=== PATIENT | male | born 1980 | race Caucasian/White ===

== ENCOUNTER → 2016-09-04 | Outpatient (CLI) | payer BC ==
[~2016-09-04] MED LIST: DIPH25TA24 PO; LISI-725 PO; OMEP20CA9 PO
[2016-09-04 10:17] LABS: BLOOD UREA NITROGEN 17 mg/dl (7-18); BUN/CREATININE RATIO 15.8 (10-20); CARBON DIOXIDE 25 mmol/L (21-32); CHLORIDE 108 mmol/L (98-107); GLUCOSE 112 mg/dl (70-99); HDL CHOLESTEROL 41 mg/dl; MAGNESIUM 2.3 mg/dl (1.8-2.4); POTASSIUM 4.2 mmol/L (3.5-5.1); SODIUM 143 mmol/L (136-145)
[2016-09-04 10:26] LABS: ALB/GLOB RATIO 1.1 (0.9-2); ALKALINE PHOSPHATASE 75 U/L (45-117); ALT/SGPT 42 U/L (12-78); AST/SGOT 23 U/L (15-37); CHOLESTEROL 217 mg/dl (0-200); CHOLESTEROL/HDL RATIO 5.3; LDL CHOLESTEROL CALCULATED 133 mg/dl; TRIGLYCERIDES 215 mg/dl (0-150); VERY LOW DENSITY LIPOPROT CALC 43 mg/dl
== END | disposition home or self-care (01) ==
LOC: C.LAB1850 09:04
PROVIDERS: ATTEND Nurse Practitioner Family
DX: E78.5 Hyperlipidemia, unspecified (principal); R03.0 Elevated blood-pressure reading, without diagnosis of hypertension

== ENCOUNTER → 2017-03-05 | Outpatient (CLI) | payer BC ==
[~2017-03-05] VITALS: Ht 185.4 cm; Wt 140.8 kg
[2017-03-05 08:56] VITALS: BP 159/121; PULSE 86; Ht 185.4 cm; Wt 140.8 kg
[2017-03-05 08:57] VITALS: BP 157/122; PULSE 157
== END | disposition home or self-care (01) ==
LOC: C.NEUR 08:20
PROVIDERS: ATTEND Internal Medicine Pulmonary Disease
DX: G47.33 Obstructive sleep apnea (adult) (pediatric) (principal)

== ENCOUNTER → 2017-06-29 | Outpatient (CLI) | payer BC ==
--- NOTE | 2017-06-30 05:41 | PAP/PSG TECHNICIAN REPORT ---
[facility] [employer] Polysomnogram Report Study name: None Report date: 06/30/2017 Study date: 06/29/2017 Referring Physician: Dr. Dorian Wilson DO Name: VIJAY CR Interpreting Physician: Dorian Wilson D.O. 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 Sex: Male Age: 36 Study Type: PSG Weight: 310 lbs 19 in Height: 36 years, Height 6' 1" Neck Circum: BMI: 40.9 Medications: IPRATROPIUM BORMIDE 0.06% NASAL SOLN, MONTELUKAST 10 MG, OMEPRAZOLE 40 MG Patient History 36 yr-old male here for a baseline/split study. He has a history of daytime sleepiness, frequent awakenings, some headaches, and snoring. His [place] scale is 8. The test was starting on room air. ETCO2 testing was not utilized during this study. Room 1 Parameters Monitored NPSG: E1-M2, E2-M1, Fp1-M2, Fp2-M1, F3-M2, F4-M2, F4-M1, C3-M2, C4-M2, C4-M1, O1-M2, O2-M2, O2-M1, T3-M2, T4-M1, P3-M2, P4-M1, CHIN1, CHIN2, HR, EKG, Legs, PFLOW, SNOR, FLOW, CFLOW, Tidal Volume, THOR, ABDO, SpO2, PLTH, CPRESS, ETCO2 Wave, ETCO2, pH Sleep Architecture Sleep Stages Time at Lights Off 9:53:51 PM STAGES Time (min.) TST (%) Time at Lights On 5:31:51 AM Wake 20.5 -- Total Recording Time (TRT) 458.00 min. N1 69.0 16 Total Sleep Period (TSP) 452.0 min. N2 250.5 57 Total Sleep Time (TST) 437.5min. N3 0.0 0 Awake Time 20.5 min. REM 118.0 27 Wake after Sleep Onset 14.5 min. Sleep Efficiency (SE) 96 % Sleep Onset Latency (CARISSA) 6.0 min. Number of Stage 1 Shifts None Awakenings 14 Stage Changes 99 Number of REM periods 5 REM 118.0 27 REM Latency 81.0 min. NREM 319.5 73 Body Position Analysis Supine Right Left Side Prone Vertical Total Sleep Time (min.) 138.3 0.0 305.1 305.11 0.0 0.0 Total Sleep Time (%) 30% 0% 70% 70 0% N/A% Total Sleep Time REM (min.) 11.5 0.0 106.5 None 0.0 0.0 Total Sleep Time NREM (min.) 120.9 0.0 198.6 None 0.0 0.0 Intermittent Wake (min.) 6.0 0.0 14.5 None 0.0 0.0 Total Sleep Period (%) 31% None None None None None Arousals Myoclonus (PLM) * Events Count Index Events Count Index Spontaneous 13 2 Events Awake (PLMW) 24 70.2 Respiratory 27 4.1 Events Asleep w/ Arousal (PLMA) 12 1.6 PLM 11 2 Events Asleep w/o Arousal (PLMS) 228 31.3 Snoring 20 3 Total Asleep 240 32.9 Total 69 9 Total 264 35 Respiratory Analysis * CA OA MA CH H RERA Total Count 0 6 0 0 156 5 162 Index 0.0 0.8 0.0 0 21.4 1 22.9 Mean Duration 0.0 14.1 0.0 0.00 16.7 18.9 16.7 Longest Duration 0.0 18.2 0.0 0.00 0.0 27.8 50.3 Respiratory Event Summary Total Supine ~Supine Right Left Prone REM NREM Apneas Count 6 5 1 N/A 1 N/A 0 6 Index 0.8 2 0 N/A 0.2 N/A 0 1 Hypopneas (4% Desat) Count 156 143 13 N/A 13 N/A 10 146 Index 21.4 64.8 3 N/A 2.6 N/A 5.1 27.4 Apneas & All Hypopneas Count 162 148 14 N/A 14 N/A 10 152 Index 22.2 67 3 N/A 3 N/A 5.1 28.5 Respiratory Events (Coiled Coil Inspector+All Hyp+RERA) Count 162 152 15 N/A 15 N/A 10 152 Index 22.9 69 3 N/A 2.9 N/A 5.6 29.3 Respiratory Related Arousal Count 27 152 3 N/A 3 N/A 2 28 Index 4.1 12 1 N/A 1 N/A 1 5 Snoring Analysis Supine Right Left Prone REM NREM Total Snore duration 113.9 min Snores count 1,079 N/A 1,891 N/A 285 2,685 2,970 Snore mean duration 2.3 Sec Snores index 489 N/A 372 N/A 144.9 504.2 407.3 TST with snoring (%) 26.0% Desaturation Event Summary: Minimum %SpO2 Event Count Mean/Min/Max Duration(sec.) Desaturation Index % Time In Bed > 90 198 19.1 / 5.5 / 59.5 29.8 93.2 86 - 90 4 11.2 / 7.5 / 15.0 8.8 6.4 81 - 85 0 N/A 0.0 0.4 76 - 80 0 N/A 0.0 0.0 71 - 75 0 N/A 0.0 0.0 66 - 70 0 N/A 0.0 0.0 61 - 65 0 N/A 0.0 0.0 56 - 60 0 N/A 0.0 0.0 51 - 55 0 N/A 0.0 0.0 < 50 0 N/A 0.0 0.0 Total REM NREM Awake <50% 0.0 min. 0.0 min. 0.0 min. 0.0 min. 51 - 60% 0.0 min. 0.0 min. 0.0 min. 0.0 min. 61 - 70% 0.0 min. 0.0 min. 0.0 min. 0.0 min. 71 - 80% 0.0 min. 0.0 min. 0.0 min. 0.0 min. 81 - 90% 28.9 min. 0.8 min. 26.8 min. 1.3 min. 91 - 100% 398.4 min. 112.8 min. 271.9 min. 13.7 min. Average 93 94 93 93 Minimum SpO2 83 87 83 83 Desaturation Event Index 26.5 8.6 33.6 20.5 # Desat. Events below 89% 66 1 63 2 Time(%) with Saturation below 89% 2.4 0.1 2.2 0.2 Time(min.) with Saturation below 89% 10.1 0.2 9.3 0.6 Time (mins) REM (mins) NREM (mins) % of TST SpO2 Below 90% 139 3 N136 3.5 SpO2 Below 88% 18 0 0 1 Heart Rate Analysis Min (bpm) Max (bpm) Average (bpm) Awake 66 188 86 NREM 49 127 74 REM 54 127 74 Overall 49 127 74 Supplemental O2 Values Minimum O2 level: None Value Start Time End Time [employer] Teacher Comments Mr. Cr slept in the left and supine positions. No cardiac arrhythmias were noted. PLMs were noted. No bruxism noted. Snoring was noted and scored as a 4 on a scale of 1 through 5. (0=no snoring, 5=snoring loud enough to be heard through a closed door or down the alejandra way) He did not meet specific Split-Night criteria during the diagnostic portion of this study. He did not wake up to use the restroom during the night. Mr. Cr stated that he slept about the same as usual. The final report will be interpreted and signed by a sleep physician. The completed physician report will then be placed in the patient medical record. Therapy (cm H2O) 0 TIB (min.) 458.0 TST (min.) 437.5 Sleep Onset (min.) 6.0 REM Onset From Sleep (min.) 81.0 Sleep Efficiency % 96 Wakefulness (%) 4 Wakefulness (min.) 20.5 NREM 1 (%) 16 NREM 1 (min.) 69.0 NREM 2 (%) 57 NREM 2 (min.) 250.5 NREM 3 (%) 0 NREM 3 (min.) 0.0 REM (%) 27 REM (min.) 118.0 # Arousals 69 Arousal Index 9 # Snore 2,970 Snore Index 407.3 AHI 22.2 AHI Supine 67 AHI Non-Supine 3 NREM AHI 28.5 REM AHI 5.1 RDI 22.9 # Obstructive Apnea 6 # Central Apnea 0 # Mixed Apnea 0 # Hypopneas 156 RERAs 5 Total Respiratory Events 168 Time Below SpO2 89% (min.) 9.5 Mean NREM SpO2 (%) 93 Mean REM SpO2 (%) 94 Mean Sleep SpO2 (%) 93 Min NREM SpO2 (%) 83 Min REM SpO2 (%) 87 Position Supine (min.) 138.3 Position Non-supine (min.) 305.1 LM Index Sleep 32.9 LM Index NREM 35.7 LM Index REM 25.4 Mean Heart Rate (bpm) 74 Min Heart Rate (bpm) 49
--- NOTE | 2017-07-02 07:12 | Sleep Study ---
Sleep Study Report Date of Service: 06/29/2017 Sleep Study Report Clinical data: The patient is a 36-year-old male who has symptoms of snoring, disturbed nocturnal sleep, excessive daytime somnolence, and headaches. He has a BMI of 40.9. This was an in-lab diagnostic polysomnography Sleep architecture: The total sleep period was 452 minutes. The total sleep time was 437.5 minutes. The sleep efficiency was normal at 96 percent. The sleep latency was 6 minutes. Wake after sleep onset was 14.5 minutes. REM latency was normal at 81 minutes. Sleep consisted of stage N1 16 percent, stage N2 57 percent, stage N3 0 percent, stage REM 27 percent. Arousal data: The patient had a total of 69 arousals including 13 spontaneous arousals, 27 respiratory arousals, 11 PLM arousals, and 20 snoring arousals. The arousal index was 9. PLM data: The patient had a total of 240 periodic limb movements of sleep for a PLM index of 32.9. There were only 12 arousals associated with limb movements for a PLM arousal index of 1.6. EKG: The underlying cardiac rhythm was normal sinus. The lowest heart rate was 49 beats per minute. The average heart rate was 74 beats per minute. No cardiac arrhythmias were noted. Respiratory data: The patient had a total of 162 respiratory events including 6 obstructive apneas and 156 hypopneas. Hypopneas were scored according to the 4 percent desaturation rule. The longest apnea was 18.2 seconds. The mean duration of the hypopneas was 16.7 seconds. There were also 5 RERAs. The apnea -hypopnea index was elevated at 22.2 events per hour. This would represent moderate obstructive sleep apnea. Oximetry data: The average saturation for the night was 93 percent. The minimum saturation was 83 percent. There was a total of 10.1 minutes with saturations less than 89 percent. 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 No cardiac arrhythmias were noted. PLMS were noted. No bruxism noted. Snoring was noted and scored as a 4 on a scale of 1 through 5. He did not meet specific split night criteria during the diagnostic portion of this study. He did not wake up to use the restroom during the night. Impressions: 1. Moderate obstructive sleep apnea Comments: This patient had a normal sleep efficiency and mildly abnormal sleep architecture. There were a modest number of limb movements but with few arousals. He did not give a history of restless legs. He does have moderate sleep apnea. He also has significant symptoms. There was a much higher frequency of respiratory events in the supine position where his apnea-hypopnea index was 67. The majority of the respiratory events occurred during the 2nd half of the night. Recommendations: 1. It is advised that the patient be treated with nasal CPAP therapy. This could be done by an in-lab CPAP titration study. Alternatively he could be treated with an auto CPAP device. 2. The patient should avoid sleeping in the supine position. He clearly had increased respiratory events while supine. 3. Weight loss is advised in light of the elevation of body mass index of 40.9. Copies To 1: Dorian Wilson DO; Jordan Castillo III, DAVID
== END | disposition home or self-care (01) ==
LOC: C.NEUR 08:24
PROVIDERS: ATTEND Internal Medicine Pulmonary Disease
DX: G47.33 Obstructive sleep apnea (adult) (pediatric) (principal)

== ENCOUNTER → 2017-08-10 | Outpatient (CLI) | payer BC ==
[2017-08-10 09:49] LABS: BASO % 0.3 %; BASO ABS # 0.02 K/uL (0-0.2); EOS % 2.4 %; EOS ABS # 0.15 K/uL (0-0.5); HEMATOCRIT 43.3 % (42-52); HEMOGLOBIN 14.9 g/dL (14.0-18.0); IG# 0.02 K/uL (0.00-0.02); LYMPH % 23.2 %; LYMPH ABS # 1.45 K/uL (1.2-3.4); MEAN CELL VOLUME 86.3 fL (80-100); MEAN CORPUSCULAR HEMOGLOBIN 29.7 pg (25-34); MEAN CORPUSCULAR HGB CONC 34.4 g/dl (32-36); MEAN PLATELET VOLUME 10.5 fL (7.4-10.4); MONO % 6.7 %; MONO ABS # 0.42 K/uL (0.11-0.59); NEUT % 67.1 %; NEUT ABS # 4.19 K/uL (1.4-6.5); PLATELET COUNT 190 K/uL (130-400); RED CELL DISTRIBUTION WIDTH CV 12.7 % (11.5-14.5); RED CELL DISTRIBUTION WIDTH SD 40.3 fL (36.4-46.3); WHITE BLOOD COUNT 6.25 K/uL (4.8-10.8)
[2017-08-10 09:55] LABS: ALBUMIN 3.9 gm/dl (3.4-5.0); ALT/SGPT 36 U/L (12-78); AST/SGOT 17 U/L (15-37); BLOOD UREA NITROGEN 19 mg/dl (7-18); CALCIUM 8.8 mg/dl (8.5-10.1); CARBON DIOXIDE 27 mmol/L (21-32); GLUCOSE 112 mg/dl (70-99); SODIUM 139 mmol/L (136-145)
[2017-08-10 10:05] LABS: ALKALINE PHOSPHATASE 71 U/L (45-117); CHOLESTEROL 201 mg/dl (0-200); LDL CHOLESTEROL CALCULATED 125 mg/dl; TOTAL PROTEIN 7.6 gm/dl (6.4-8.2)
[2017-08-10 10:07] LABS: HEMOGLOBIN A1C 5.5 % (4.5-5.6)
== END | disposition home or self-care (01) ==
LOC: C.LAB1850 08:17
PROVIDERS: ATTEND Nurse Practitioner Family
DX: E78.5 Hyperlipidemia, unspecified (principal); R73.9 Hyperglycemia, unspecified; I10 Essential (primary) hypertension

== ENCOUNTER → 2017-08-10 | Outpatient (CLI) | payer BC ==
--- NOTE | 2017-08-10 09:15 | DIAGNOSTIC IMAGING REPORT ---
ABDOMINAL ULTRASOUND, RIGHT UPPER QUADRANT HISTORY: Right upper quadrant abdominal pain. COMPARISON: None. FINDINGS: Liver morphology is normal. No hepatic lesions are identified. There is no biliary ductal dilatation. Common bile duct measures 6 mm in caliber. No gallstones are identified. There is no gallbladder wall thickening. A small amount of sludge within the gallbladder is suspected. No pericholecystic fluid is noted. The pancreatic body is normal. The pancreatic head and tail are obscured. There is no right hydronephrosis. IMPRESSION: 1. No gallstones or biliary ductal dilatation. 2. Small amount of sludge within the gallbladder. No gallbladder wall thickening. No evidence of acute cholecystitis. Electronically signed by: Axel Johnson M.D. 08/10/2017 9:14 AM Dictated Date/Time: 08/10/2017 9:12 AM
== END | disposition home or self-care (01) ==
LOC: C.ULTR 08:34
PROVIDERS: ATTEND Nurse Practitioner Family
DX: R10.11 Right upper quadrant pain (principal)

== ENCOUNTER → 2017-08-25 | Outpatient (CLI) | payer BC ==
[~2017-08-25] MED LIST changes: +SINCALIDE IV ONE; +SODIUM CHLORIDE 0.9% IV ONE
--- NOTE | 2017-08-25 13:10 | DIAGNOSTIC IMAGING REPORT ---
HEPATOBILIARY EF IMAGING CLINICAL HISTORY: 36 years-old Male with R10.11 Abdominal pain, RUQ (right upper quadrant)[id number]. Acute right upper quadrant abdominal pain TECHNIQUE: Following the intravenous administration of 5.5 mCi of technetium-99m Choletec, sequential abdominal images were obtained. In order to evaluate the contractile response of the gallbladder, 2.7 mcg of Kinevac was administered by slow intravenous infusion over 30 min starting approximately 60 min after the administration of the radiopharmaceutical. Sequential imaging was continued for 45 minutes after the start of the Kinevac infusion. COMPARISON: Right upper quadrant ultrasound 08/10/2017 FINDINGS: There is prompt, uniform accumulation of the tracer by the liver. There is normal filling of the intrahepatic ducts, common bile duct and gallbladder and normal excretion of the tracer into the duodenum. There is decreased contraction of the gallbladder. The calculated gallbladder ejection fraction is 19% (normal >40%). There is no significant enterogastric reflux. IMPRESSION: 1. Decreased contractile response of the gallbladder to Kinevac infusion with ejection fraction of 19%. 2. Otherwise normal biliary imaging study. 3. No significant enterogastric reflux is identified. The above report was generated using voice recognition software. It may contain grammatical, syntax or spelling errors. Electronically signed by: Morgan Kirkpatrick M.D. 08/25/2017 1:09 PM Dictated Date/Time: 08/25/2017 1:06 PM
== END | disposition home or self-care (01) ==
LOC: C.NUCL 09:26
PROVIDERS: ATTEND Nurse Practitioner Family
DX: R10.11 Right upper quadrant pain (principal)

== ENCOUNTER → 2017-09-10 | Day surgery (SDC) | payer BC ==
[2017-09-07 09:48] VITALS: BMI 39.0
[~2017-09-10] VITALS: Ht 185.4 cm; Wt 136.4 kg
[~2017-09-10] MED LIST changes: +ACETAMINOPHEN 1000 MG/100 ML IV IV ONE; +ATROPINE SULFATE 0.1 MG/ML 5ML SYR IV PRN; +BUPIVACAINE 0.5 % 5 MG/1 ML MPF 30ML VIAL ONE; +BUPIVACAINE/EPINEPHRINE 0.5% MPF 1:200,000 30 ML VIAL ONE; +CEFAZOLIN 3000MG IV PUSH 22.5 ML IV SCH; +CISATRACURIUM BESYLATE IV SOLN 2 MG/ML 10 ML VIAL ONE; +DEXAMETHASONE SOD INJ 4 MG/ML VIAL ONE; -DIPH25TA24 PO; +EpHEDrine SULFATE INJ 50 MG/ML AMP IV PRN; +FENTANYL CITRATE INJ 50 MCG/1 ML 2 ML VIAL ONE; +FLUMAZENIL 0.1 MG/1 ML 10 ML VIAL IV PRN; +HEPARIN SOD 5000 UNIT/0.5 ML CARP SQ ONE; +HYDR-5688 PO; +HYDROCODONE/ACETAMIN 5/325MG TAB ONE; +HYDROCODONE/ACETAMIN 5/325MG TAB PO PRN; +HYDROmorphone INJ 1 MG/ML SYR IV PRN; +HYDROmorphone INJ 2 MG/ML SYR/VIAL ONE; +HydrALAZINE HCL 20 MG/ML VIAL ONE; +IPRATROPIUM BROMIDE INTNAS; +LABETALOL HCL IV 5 MG/ML 20ML IV ONE; +LABETALOL HCL IV 5 MG/ML 20ML IV PRN; +LACTATED RINGER'S 1000ML 1,000 ML IV SCH; +LIDOCAINE HCL 2% 2 ML VIAL (20MG/ML) ONE; -LISI-725 PO; +LOSARTAN HCTZ PO; +MIDAZOLAM HCL 1 MG/ML 2ML VIAL ONE; +MoRPHine SULFATE 2 MG/ML CARP IV PRN; +NALOXONE HCL 0.4 MG/1 ML VIAL/CARP IV PRN; +NURSING VERBAL MED ORDER ONE; +OMEG10007 PO; +ONDANSETRON INJ 2 MG/ML 2 ML VIAL IV PRN; +ONDANSETRON INJ 2 MG/ML 2 ML VIAL ONE; +PROMETHAZINE HCL INJ 12.5 MG in SODIUM CHLORIDE 0.9% 50ML 50 ML IV PRN; +PROPOFOL IV EMULSION 10 MG/ML 20 ML VIAL IV ONE; -SINCALIDE IV ONE; -SODIUM CHLORIDE 0.9% IV ONE; +SUCCINYLCHOLINE CHLORIDE 20 MG/ML 10 ML VIAL IV ONE
[2017-09-10 07:20] VITALS: BP 168/102; PULSE 90; TEMP 37.1; O2SAT 96; Ht 185.4 cm; Wt 136.4 kg
--- NOTE | 2017-09-10 07:51 | History & Physical Bridge Note ---
H&P Re-Evaluation Bridge Note: I have examined the patient, reviewed the History & Physical and in the interval since the performance of the History & Physical I have noted the following changes of clinical significance: No changes noted
--- NOTE | 2017-09-10 09:16 | [facility] Post Operative Brief Note ---
Immediate Operative Summary Operative Date Sep 10, 2017. Pre-Operative Diagnosis Chronic Cholecystitis Post-Operative Diagnosis Chronic Cholecystitis Procedure(s) Performed Laparoscopic Cholecystectomy Surgeon Dr. Fofana Shelter Advocate Surgeon(s) HENRI Jhaveri Estimated Blood Loss 5ml Findings Consistent with Post-Op Diagnosis Specimens A) Gallbladder and contents Drains None Anesthesia Type General Complication(s) none
--- NOTE | 2017-09-10 09:30 | Discharge Instructions ---
Discharge Instructions Date of Service Sep 10, 2017. Visit Reason for Visit: Biliary Dyskinesia Discharge Discharge Diagnosis / Problem: laparoscopic cholecystectomy Discharge Goals Goal(s): Decrease discomfort Activity Recommendations Activity Limitations: as noted below Lifting Limitations: no more than 10 pounds Shower/Bathe: no limitations Driving or Machine Use: resume 3 days after discharge Anesthesia . Post Anesthesia Instructions: If you have had General Anesthesia or IV Sedation: * Do not drive today. * Resume driving when surgeon permits. * Do not make important decisions or sign legal documents today. * Call surgeon for: 1. Temperature elevations greater than 101 degrees F. 2. Uncontrollable pain. 3. Excessive bleeding. 4. Persistent nausea and vomiting. 5. Medication intolerance (nausea, vomiting or rash). * For nausea and vomiting use only clear liquids such as: tea, soda, bouillon until nausea subsides, then gradually increase diet as tolerated. * If you have any concerns or questions, call your surgeon's office. If physician is unavailable and it is an emergency, call 911 or go to the nearest emergency room. . Instructions / Follow-Up Instructions / Follow-Up Dr. Fofana in 2 weeks as planned, call [phone] if you have any questions Diet Recommendations Recommended Home Diet: no limitations Procedures Procedures Performed: Laparoscopic Cholecystectomy Pending Studies Studies pending at discharge: yes List of pending studies: pathology Medical Emergencies . Who to Call and When: Medical Emergencies: If at any time you feel your situation is an emergency, please call 911 immediately. . Non-Emergent Contact Non-Emergency issues call your: Surgeon Call Non-Emergent contact if: you have a fever, temperature is above 101.5, your pain is not controlled, you have any medication questions . . "Provider Documentation" section prepared by Ernesto Boogie. .
--- NOTE | 2017-09-10 09:40 | [facility] Operative Report ---
Operative Report Operative Date Sep 10, 2017. Pre-Operative Diagnosis Chronic Cholecystitis Post-Operative Diagnosis Chronic Cholecystitis Procedure(s) Performed Laparoscopic Cholecystectomy Surgeon Dr. Fofana Electrical Software Engineer Surgeon(s) HENRI Jhaveri Estimated Blood Loss 5ml Specimens A) Gallbladder and contents Drains None Anesthesia Type General Complication(s) none Description of Procedure After informed consent was obtained the patient was taken to the operating room and placed in the supine position. After successful intubation the abdomen was sterilely prepped and draped in usual fashion. A periumbilical incision was made with an 11 blade scalpel and carried down through the soft tissue using electrocautery. The anterior rectus fascia was opened using electrocautery and 2 #0 Vicryl stay sutures were placed. The peritoneum was elevated with hemostats and incised under direct vision using Metzenbaum scissors. A finger sweep was performed and a 12 mm Ramirez trocar was placed. The abdomen was insufflated to 18 mmHg. The laparoscope was inserted and the abdomen was examined in 360. No gross abnormalities were identified. A subxiphoid 5 mm port and 2 right upper quadrant 5 mm ports were placed under direct vision. The patient was placed in a reverse Trendelenburg position and slightly airplaned to the left. The gallbladder was grasped and elevated superiorly and laterally. A [place] dissector was used to take down adhesions around the neck of the gallbladder. The cystic duct was identified and skeletonized. It was clipped twice proximally and once distally and transected using a laparoscopic scissor. In similar fashion the cystic artery was identified and skeletonized clipped and divided. The gallbladder was removed from the gallbladder fossa with electrocautery. It was placed into an Endo Catch bag. Thorough irrigation was performed. I looked around the entire abdomen as best I could with special attention to the right lower quadrant. I saw no visible abnormalites. The right colon, cecum, peritoneal surfaces all looked normal. There were no hernias. At the end of the procedure there was adequate hemostasis and no evidence of any bile leaks. A final look around the abdomen showed no other abnormalities. The gallbladder and trochars were all removed and the abdomen was desufflated. The fascia of the camera port was closed using 0 Vicryl in a [id number] fashion. All the wounds were irrigated and closed using 4-0 Monocryl. Marcaine was injected around them for postoperative analgesia and skin glue used as a dressing. The patient was awaken extubated and transferred to recovery in stable condition. My physician clinical education assistant was present through the entire case. He helped prep the patient. He helped with gallbladder retraction helped expose fascia for wound closure and dressing placement. I attest to the content of the Intraoperative Record and any orders documented therein. Any exceptions are noted below.
[2017-09-10 10:18] VITALS: BP 143/76; PULSE 82; TEMP 36.4; O2SAT 93
--- NOTE | 2017-09-10 10:35 | Anesthesiology Progress Note ---
Anesthesia Post Op Note Date & Time Sep 10, 2017 at 10:35 Vital Signs Pain Intensity: 5 Vital Signs Past 12 Hours Date Time Temp Pulse Resp B/P (MAP) Pulse Ox O2 Delivery O2 Flow Rate FiO2 09/10/17 10:18 36.4 82 18 143/76 93 Room Air 09/10/17 10:13 89 22 94 09/10/17 10:13 89 22 09/10/17 10:12 148/95 09/10/17 10:10 37.0 83 16 148/95 (107) 94 Room Air 09/10/17 10:08 82 14 95 09/10/17 10:08 83 14 09/10/17 10:06 153/94 09/10/17 10:03 84 11 09/10/17 10:03 83 11 96 09/10/17 10:02 87 15 09/10/17 10:02 88 15 156/97 97 09/10/17 09:57 80 18 97 09/10/17 09:57 80 18 09/10/17 09:56 154/103 09/10/17 09:52 85 19 09/10/17 09:52 84 19 95 09/10/17 09:51 156/110 09/10/17 09:50 89 18 156/110 (126) 97 Oxymask 10 09/10/17 09:47 75 11 09/10/17 09:47 72 11 92 09/10/17 09:46 170/107 09/10/17 09:42 91 14 09/10/17 09:42 91 14 100 09/10/17 09:41 173/117 09/10/17 09:39 158/113 09/10/17 09:37 88 13 185/118 95 09/10/17 09:37 87 13 09/10/17 09:34 193/124 09/10/17 09:33 194/121 09/10/17 09:32 36.3 84 12 194/121 (143) 97 Oxymask 10 09/10/17 07:20 37.1 90 18 168/102 (124) 96 Room Air Notes Mental Status: alert / awake / arousable, participated in evaluation Pt Amnestic to Procedure: Yes Nausea / Vomiting: adequately controlled Pain: adequately controlled Airway Patency, RR, SpO2: stable & adequate BP & HR: stable & adequate Hydration State: stable & adequate Anesthetic Complications: no major complications apparent
[2017-09-10 10:48] VITALS: BP 141/69; PULSE 81; TEMP 36.5; O2SAT 93
== END | disposition home or self-care (01) ==
LOC: C.ACU 06:49
PROVIDERS: ATTEND Surgery
DX: K81.1 Chronic cholecystitis (principal); R10.11 Right upper quadrant pain; E78.5 Hyperlipidemia, unspecified; I10 Essential (primary) hypertension; R12 Heartburn; G47.33 Obstructive sleep apnea (adult) (pediatric); F17.220 Nicotine dependence, chewing tobacco, uncomplicated; Z86.79 Personal history of other diseases of the circulatory system; Z87.898 Personal history of other specified conditions; Z80.8 Family history of malignant neoplasm of other organs or systems; Z80.3 Family history of malignant neoplasm of breast; Z84.89 Family history of other specified conditions

== ENCOUNTER → 2018-02-02 | Outpatient (CLI) | payer BC ==
[~2018-02-02] MED LIST changes: -ACETAMINOPHEN 1000 MG/100 ML IV IV ONE; -ATROPINE SULFATE 0.1 MG/ML 5ML SYR IV PRN; -BUPIVACAINE 0.5 % 5 MG/1 ML MPF 30ML VIAL ONE; -BUPIVACAINE/EPINEPHRINE 0.5% MPF 1:200,000 30 ML VIAL ONE; -CEFAZOLIN 3000MG IV PUSH 22.5 ML IV SCH; -CISATRACURIUM BESYLATE IV SOLN 2 MG/ML 10 ML VIAL ONE; -DEXAMETHASONE SOD INJ 4 MG/ML VIAL ONE; -EpHEDrine SULFATE INJ 50 MG/ML AMP IV PRN; -FENTANYL CITRATE INJ 50 MCG/1 ML 2 ML VIAL ONE; -FLUMAZENIL 0.1 MG/1 ML 10 ML VIAL IV PRN; -HEPARIN SOD 5000 UNIT/0.5 ML CARP SQ ONE; -HYDROCODONE/ACETAMIN 5/325MG TAB ONE; -HYDROCODONE/ACETAMIN 5/325MG TAB PO PRN; -HYDROmorphone INJ 1 MG/ML SYR IV PRN; -HYDROmorphone INJ 2 MG/ML SYR/VIAL ONE; -HydrALAZINE HCL 20 MG/ML VIAL ONE; -LABETALOL HCL IV 5 MG/ML 20ML IV ONE; -LABETALOL HCL IV 5 MG/ML 20ML IV PRN; -LACTATED RINGER'S 1000ML 1,000 ML IV SCH; -LIDOCAINE HCL 2% 2 ML VIAL (20MG/ML) ONE; -MIDAZOLAM HCL 1 MG/ML 2ML VIAL ONE; -MoRPHine SULFATE 2 MG/ML CARP IV PRN; -NALOXONE HCL 0.4 MG/1 ML VIAL/CARP IV PRN; -NURSING VERBAL MED ORDER ONE; -ONDANSETRON INJ 2 MG/ML 2 ML VIAL IV PRN; -ONDANSETRON INJ 2 MG/ML 2 ML VIAL ONE; -PROMETHAZINE HCL INJ 12.5 MG in SODIUM CHLORIDE 0.9% 50ML 50 ML IV PRN; -PROPOFOL IV EMULSION 10 MG/ML 20 ML VIAL IV ONE; -SUCCINYLCHOLINE CHLORIDE 20 MG/ML 10 ML VIAL IV ONE
[2018-02-02 09:43] LABS: HEMOGLOBIN A1C 5.6 % (4.5-5.6)
[2018-02-02 09:51] LABS: ALBUMIN 4.1 gm/dl (3.4-5.0); ALKALINE PHOSPHATASE 65 U/L (45-117); ALT/SGPT 35 U/L (12-78); AST/SGOT 17 U/L (15-37); BLOOD UREA NITROGEN 15 mg/dl (7-18); CALCIUM 9.5 mg/dl (8.5-10.1); CARBON DIOXIDE 27 mmol/L (21-32); CHOLESTEROL 170 mg/dl (0-200); CREATININE 1.01 mg/dl (0.60-1.40); GLUCOSE 104 mg/dl (70-99); LDL CHOLESTEROL CALCULATED 109 mg/dl; POTASSIUM 4.2 mmol/L (3.5-5.1); SODIUM 140 mmol/L (136-145); TOTAL PROTEIN 7.8 gm/dl (6.4-8.2)
== END | disposition home or self-care (01) ==
LOC: C.LAB 06:55
PROVIDERS: ATTEND Nurse Practitioner Family
DX: M25.50 Pain in unspecified joint (principal); E78.5 Hyperlipidemia, unspecified; R73.9 Hyperglycemia, unspecified; I10 Essential (primary) hypertension

== ENCOUNTER 2022-05-09 16:20 | Inpatient (IN) ==
[2022-05-09] MEDS ORDERED: HYDROmorphone INJ 1 MG/ML SYRINGE ONE (16:37)
[2022-05-09] MEDS ORDERED: ONDANSETRON INJ 2 MG/ML 2 ML VIAL IV STA (16:38)
[2022-05-09] MEDS ORDERED: HYDROmorphone INJ 1 MG/ML SYRINGE IV STA (16:38)
[2022-05-09] MEDS ORDERED: PIPERACILLIN/TAZOBACTAM 4.5 GM/120 ML BAG IV ONE (16:45)
[2022-05-09] MEDS: SODIUM CHLORIDE 0.9% 1000ML 1,000 ML IV SCH (16:47)
--- NOTE | 2022-05-09 16:50 | Emergency Department Note ---
History of Present Illness General Chief complaint: Laceration/Cut (Non-Suture) Stated complaint: CUT ON L FOOT, BLEEDING, WC Time Seen by Provider: 05/09/22 16:31 History of Present Illness Provider complaint: Left foot injury Onset (ago): hour(s) 1 Location: lower extremity and left Radiation: non-radiation Severity: moderate Pain Consistency: + constant Maximum Pain Intensity: 5 Current Pain Intensity: 5 Quality: + sharp Relieved By: + none Exacerbated By: + none Associated symptoms: no chest pain, no cough, no fever/chills, no headaches, no nausea/vomiting or no shortness of breath 41-year-old male presents emergency department for left foot injury. Patient states a circular cutter blade that he was using for cutting trees fell on his left foot and went through his steel toed boot. Patient reports no other i njuries. Tetanus is up-to-date. No blood thinners. Home Medications Medication Instructions Recorded Confirmed Type flaxseed oil 1,000 mg capsule 1,000 mg PO BID 05/29/20 05/09/22 History vitamin B complex 1 tab PO QAM 05/29/20 05/09/22 History cholecalciferol (vitamin D3) 50 4,000 unit PO QAM 12/14/20 05/09/22 History mcg (2,000 unit) tablet (Vitamin D3) colchicine 0.6 mg tablet 0.6 mg PO BID #180 tabs 11/07/21 05/09/22 Rx omeprazole 40 mg capsule,delayed 40 mg PO DAILY #90 caps 11/25/21 05/09/22 Rx release ipratropium bromide 42 mcg (0.06 2 spray intranasal QPM PRN allergy 02/18/22 05/09/22 Rx %) nasal spray symptoms #15 mL amlodipine 10 mg tablet 10 mg PO DAILY #90 tabs 03/03/22 05/09/22 Rx losartan 100 mg tablet 100 mg PO DAILY #90 tabs 03/03/22 05/09/22 Rx meloxicam 7.5 mg tablet 7.5 mg PO DAILY PRN pain #90 tabs 04/30/22 05/09/22 Rx simvastatin 10 mg tablet 10 mg PO QPM #90 tabs 04/30/22 05/09/22 Rx trazodone 50 mg tablet 50 mg PO HS 05/09/22 05/09/22 History Allergies Allergy/AdvReac Type Severity Reaction Status Date / Time No Known Allergies Allergy Unknown Unverified 05/09/22 17:20 Past Med/Surg History Medical History Allergic rhinitis Cervical radicular pain CTS (carpal tunnel syndrome) Dyslipidemia Gout Hyperglycemia Hypertension Left shoulder pain Obstructive sleep apnea of adult Right ear pain Uvulitis Vitamin D deficiency Surgical History History of dental surgery History of laparoscopic cholecystectomy (2018) Family History Grandmother (Maternal) Breast cancer Brother Thyroid cancer Other Allergic rhinitis Denies family history of Ovarian cancer Prostate cancer Myocardial infarction Colorectal cancer Social History Smoking Status: Never smoker Tobacco Type: Smokeless Tobacco (Dip or Chew) Age Started Using Tobacco: 11; packs per day: 1; Cigarettes Per Day: 1 CAN DAILY; Second Hand Exposure: No; Hx Alcohol Use: Yes Alcohol type: beer Alcohol Intake Frequency Comment: 3/day Hx Substance Use: No Preferred Language: Estonian Communication Ability: Effective Visual Impairment: No Limitations Hearing Ability: Normal Repossession Agent Required: No Beliefs That Will Affect Care: None marital status: Current Living Situation: Spouse current occupational status: employed current occupation: laid off currently How many Children do You have: 1 Feels Safe at Home: Yes Childhood Exposure to Second-Hand Smoke: Yes caffeine: Yes during the past year weight has: remained stable Dental Care, Regularly: No Physical Activity Frequency: 1-2 Times per Week Seatbelt Use: always Sunscreen Use: No Do you think of yourself as: straight/heterosexual Review of Systems A total of 10 systems reviewed and were otherwise negative Physical Exam Vital Signs Vital Signs - 24 hr 05/09/22 16:22 05/09/22 16:45 Temperature 36.5 C Temperature Source Temporal Artery Scan Pulse Rate 114 H Respiratory Rate 18 Respiratory Effort / Characteristics Non-Labored Respiratory Depth Normal Blood Pressure 172/115 H Blood Pressure Mean 134 Pulse Oximetry 98 Oxygen Delivery Method Room Air Room Air Sepsis Recent Fever Within 48 Hours No Sepsis New/Unexplained Change in Mental Status No Sepsis Action Taken by Nursing No Action Required Physical Exam GENERAL: He is oriented to person, place, and time. He appears well-developed and well-nourished. He does not appear distressed. HENT: Exam performed. - Head: Normocephalic and atraumatic. - Right Ear: External ear normal. No mastoid tenderness. - Left Ear: External ear normal. No mastoid tenderness. - Mouth/Throat: The oropharynx is clear and moist. No trismus in the jaw. No dental abscesses or uvula swelling. No oropharyngeal exudate or tonsillar abscesses. EYES: Conjunctivae and EOM are normal. Pupils are equal, round, and reactive to light. Right eye exhibits no discharge. Left eye exhibits no discharge. No scleral icterus. NECK: Normal range of motion. Neck supple. No JVD present. No spinous process tenderness present. No carotid bruit present. No rigidity. No tracheal deviation and normal range of motion present. No Brudzinski's sign and no Kernig's sign noted. CV: Normal rate, regular rhythm, normal heart sounds and intact distal pulses. There is no peripheral edema. Palpable radial pulses bue. PULM/CHEST: Effort normal and breath sounds normal. No respiratory distress. No stridor. He has no wheezes. He has no rales. - Chest Wall: He exhibits no tenderness. ABD: The abdomen is soft. Bowel sounds are normal. He has no distension. No mass is present. There is no tenderness. There is no rebound, no guarding, no Thomas's sign and no tenderness at McBurney's point. Rovsig negative. MUSC/SKEL: Left lower extremity: Laceration through the proximal phalanges 1 through 4 of the left foot. Bleeding is controlled. Palpable DP and PT pulse. Right lower extremity: Within normal limits. LYMPH: No cervical adenopathy. NEURO: He is alert and oriented to person, place, and time. He has normal strength. No cranial nerve deficit or sensory deficit. Coordination and gait n ormal. GCS eye subscore is 4. GCS verbal subscore is 5. GCS motor subscore is 6. Cerebellar tests wnl. PSYCH: He has a normal mood and affect. Behavior is normal. Judgment and thought content normal. Course Course 1631: The patient was evaluated in room A1. A complete history and physical exam was performed Cardiac monitoring: An order was placed for continuous cardiac monitoring. The monitor shows a rate of 110 with sinus rhythm 1707: X-ray reviewed by me shows displaced distal phalanx fracture of first toe, displaced middle phalanx fracture of second toe, and fracture of middle phalanx of third toe. Discussed the case with Dr. Street Podiatry who states that he will be down to evaluate the patient. Patient's tetanus is up-to-date. Patient be given Zosyn and vancomycin for antibiotic coverage. 1717: Dr. Street came and evaluated the patient at bedside. He states he will take the patient to the OR for washout and surgery. He requested the patient be admitted to the medical team [facility] team will be made aware. Administered Medications Vancomycin HCl 2,750 mg/ (Sodium Chloride) 555 mls @ 180 mls/hr IV NOW ONE Stop: 05/09/22 20:04 Last Admin: 05/09/22 17:15 Dose: 180 mls/hr Documented By: NEERAJ Sodium Chloride (Nss 1000ml) 1,000 mls @ 125 mls/hr IV .Q8H PEGGY Stop: 06/08/22 16:44 Last Admin: 05/09/22 16:47 Dose: 125 mls/hr Documented By: NEERAJ Discontinued Medications Hydromorphone HCl (Hydromorphone Inj 1 Mg/Ml Syringe) Confirm Administered Dose 1 mg .ROUTE .STK-MED ONE Stop: 05/09/22 16:38 Last Admin: 05/09/22 16:39 Dose: 1 mg Documented By: NEERAJ Piperacillin Sod/Tazobactam Sod (Zosyn) 4.5 gm in 120 mls @ 240 mls/hr IV NOW ONE Stop: 05/09/22 17:14 Last Admin: 05/09/22 16:41 Dose: 240 mls/hr Documented By: NEERAJ Medical Decision Making Laboratory Data Result diagrams: 05/09/22 16:27 05/09/22 16:37 Lab Results 05/09/22 05/09/22 Range/Units 16:27 16:45 WBC 7.37 (4.8-10.8) K/ul RBC 4.85 (4.63-6.08) M/uL Hgb 14.4 (14.0-18.0) g/dl Hct 41.2 (40.1-51.0) % MCV 84.9 (80.0-100.0) fL MCH 29.7 (25.0-34.0) pg MCHC 35.0 (32.0-36.0) g/dL RDW Std Deviation 38.5 (36.4-46.3) fL RDW Coeff of Rudy 12.4 (11.5-14.5) % Plt Count 218 (130-400) K/uL MPV 10.3 (9.4-12.4) fL Immature Gran % (Auto) 0.4 % Neut % (Auto) 72.3 % Lymph % (Auto) 18.5 % [place] % (Auto) 6.5 % Eos % (Auto) 1.9 % Baso % (Auto) 0.4 % Neut # (Auto) 5.33 (1.4-6.5) K/uL Lymph # (Auto) 1.36 (1.2-3.4) K/uL [place] # (Auto) 0.48 (0.24-0.82) K/uL Eos # (Auto) 0.14 (0-0.50) K/uL Baso # (Auto) 0.03 (0-0.2) K/uL Immature Gran # (Auto) 0.03 H (0.00-0.02) K/uL SARS-CoV-2, RNA, NAAT NEGATIVE (NEGATIVE) Imaging Data Radiologist's Impression: Foot X-Ray 05/09/22 16:39 XR foot LT min 3V routine CLINICAL HISTORY: open fx over toes TECHNIQUE: 3 views of the left foot were obtained. Comparison: None available at the time of this dictation. FINDINGS: There is a fracture of the distal phalanx of the first digit middle phalanx of the second digit. Soft tissue lacerations are seen. Soft tissue swelling is seen. There are a few punctate radiodense foreign bodies. The joint spaces are well preserved. IMPRESSION: Fractures of the distal phalanx of the first digit and middle phalanx of the second digit. There is associated soft tissue laceration. A few punctate radiodense foci in the soft tissues may represent foreign bodies. ACT 112: Negative or not required by law. Electronically signed by: Stuart Sofia M.D. 05/09/2022 5:16 PM [facility] Narrative 1631: The patient was evaluated in room A1. A complete history and physical exam was performed Cardiac monitoring: An order was placed for continuous cardiac monitoring. The monitor shows a rate of 110 with sinus rhythm 1707: X-ray reviewed by me shows displaced distal phalanx fracture of first toe, displaced middle phalanx fracture of second toe, and fracture of middle phalanx of third toe. Discussed the case with Dr. Street Podiatry who states that he will be down to evaluate the patient. Patient's tetanus is up-to-date. Patient be given Zosyn and vancomycin for antibiotic coverage. 1717: Dr. Street came and evaluated the patient at bedside. He states he will take the patient to the OR for washout and surgery. He requested the patient be admitted to the medical team [facility] Hospital[facility] team will be made aware. Impression & Plan Fracture of toe Discharge Plan Visit Data Chief Complaint: Laceration/Cut (Non-Suture) Stated Complaint: CUT ON L FOOT, BLEEDING, WC ED Provider: Sourav Fields Discharge Problem: Fracture of toe Patient Disposition: Admitted As Inpatient Forms Stand Alone Forms: My [facility] Prescriptions Prescriptions: No Action omeprazole 40 mg capsule,delayed release(DR/EC) 40 mg PO DAILY Qty: 90 2RF amlodipine 10 mg tablet 10 mg PO DAILY Qty: 90 2RF losartan 100 mg tablet 100 mg PO DAILY Qty: 90 1RF meloxicam 7.5 mg tablet 7.5 mg PO DAILY PRN (Reason: pain) Qty: 90 1RF simvastatin 10 mg tablet 10 mg PO QPM Qty: 90 1RF vitamin B complex Tablet 1 tab PO QAM flaxseed oil 1,000 mg capsule 1,000 mg PO BID Rx Instructions: administer with a meal ipratropium bromide 42 mcg (0.06 %) spray,non-aerosol 2 spray INTNAS QPM PRN (Reason: allergy symptoms) Qty: 15 0RF colchicine 0.6 mg tablet 0.6 mg PO BID Qty: 180 1RF trazodone 50 mg tablet 50 mg PO HS cholecalciferol (vitamin D3) [Vitamin D3] 50 mcg (2,000 unit) Tablet 4,000 unit PO QAM Referrals Referrals: Matt Covarrubias CRNP [Primary Care Provider] - : Fracture of toe Qualifiers: Encounter type: initial encounter Toe: unspecified toe Fracture type: open Fracture alignment: displaced Laterality: unspecified laterality Qualified Code(s): S92.919B - Unspecified fracture of unspecified toe(s), initial encou nter for open fracture
[2022-05-09] MEDS ORDERED: VANCOMYCIN HCL 2,750 MG in SODIUM CHLORIDE 0.9% 500 ML IV ONE (17:00)
[2022-05-09 17:15] LABS: Basophils # (auto) 0.03 K/uL (0-0.2); Basophils % (auto) 0.4 %; Eosinophils # (auto) 0.14 K/uL (0-0.50); Eosinophils % (auto) 1.9 %; Hematocrit (blood only) 41.2 % (40.1-51.0); Hemoglobin 14.4 g/dl (14.0-18.0); Immature Granulocytes # (auto) 0.03 K/uL (0.00-0.02); Immature Granulocytes % (auto) 0.4 %; Lymphocytes # (auto) 1.36 K/uL (1.2-3.4); Lymphocytes % (auto) 18.5 %; Mean Corpuscular Hemoglobin 29.7 pg (25.0-34.0); Mean Corpuscular Volume 84.9 fL (80.0-100.0); Mean Platelet Volume 10.3 fL (9.4-12.4); Monocytes # (auto) 0.48 K/uL (0.24-0.82); Monocytes % (auto) 6.5 %; Neutrophils # (auto) 5.33 K/uL (1.4-6.5); Neutrophils % (auto) 72.3 %; Platelet Count 218 K/uL (130-400); RDW Coefficient of Variation 12.4 % (11.5-14.5); RDW Standard Deviation 38.5 fL (36.4-46.3); Red Blood Count 4.85 M/uL (4.63-6.08); White Blood Count 7.37 K/ul (4.8-10.8)
--- NOTE | 2022-05-09 17:18 | XRay Report ---
XR foot LT min 3V routine CLINICAL HISTORY: open fx over toes TECHNIQUE: 3 views of the left foot were obtained. Comparison: None available at the time of this dictation. FINDINGS: There is a fracture of the distal phalanx of the first digit middle phalanx of the second digit. Soft tissue lacerations are seen. Soft tissue swelling is seen. There are a few punctate radiodense forei gn bodies. The joint spaces are well preserved. IMPRESSION: Fractures of the distal phalanx of the first digit and middle phalanx of the second digit. There is a ssociated soft tissue laceration. A few punctate radiodense foci in the soft tissues may represent fo reign bodies. ACT 112: Negative or not required by law. Electronically signed by: Stuart Sofia M.D. 05/09/2022 5:16 PM
[2022-05-09 17:24] LABS: Partial Thromboplastin Ratio 0.9; Partial Thromboplastin Time 24.4 Seconds (21.0-31.0); Prothrombin Time 10.3 Seconds (9.0-12.0)
[2022-05-09 17:28] LABS: BUN Creatinine Ratio 16.2 (10-20); Calcium 9.7 mg/dl (8.5-10.1); Creatinine Clr Calc Pharmacy 150.6 ml/min; Est GFR (African American) 107.7 ml/min; Est GFR (Non-African American) 92.9 ml/min; Potassium 3.7 mmol/L (3.5-5.1)
--- NOTE | 2022-05-09 17:33 | History & Physical Report ---
Date of Service May 09, 2022 Assessment & Plan (1) Open fracture of foot: Plan: - Circular blade dropped on foot earlier this afternoon. - Left foot XR: Fractures of the distal phalanx of the first digit and middle phalanx of the second digit. There is associated soft tissue laceration. A few punctate radiodense foci in the soft tissues may represent foreign bodies. - Last tetanus in December 2020. - Podiatry consulted by ED, Dr. Street plans to take patient to the OR this evening. - Pain control with IV Tylenol/Toradol, Dilaudid. - Given open fracture, keep on Zosyn and vancomycin. (2) Obstructive sleep apnea of adult: Plan: - CPAP at night. (3) Hypertension: Plan: - Continue amlodipine, losartan. (4) Dyslipidemia: Plan: - Continue simvastatin. (5) Allergic rhinitis: Plan: - Inhaler as needed. (6) Hyperglycemia: Plan: - Elevated sugars, normal A1c, diet controlled. No need for Accu-Cheks. Plan - Admit to [facility]. - SCDs. - Full code. History of Present Illness Chief Complaint: foot injury sustained after dropping a blade on foot this afternoon Primary Care Provider: DAVID Martinez Yovanny Schmid is a 41-year-old male with a past medical history significant for CORTNEY, hypertension, dyslipidemia, and gout is presenting today after a circular cutter blade was dropped on his foot. 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 He did go through his steel toe boat and he felt instant pain. He had sensation of the foot, numbness or tingling, pain well controlled at this point. Voices no other complaints. X-ray of the left foot shows fracture of the distal phalanx of the first digit middle phalanx and second digit associated with soft tissue laceration, as well as few punctate radiodense foci in soft tissues which may be foreign bodies. Tetanus up-to-date, confirmed he received this in December 2020. Labs of unrevealing, hemoglobin 14.4 on admission. COVID-negative. Allergies Allergy/AdvReac Type Severity Reaction Status Date / Time No Known Allergies Allergy Unknown Unverified 05/09/22 17:20 Home Medications Medication Instructions Recorded Confirmed Type flaxseed oil 1,000 mg capsule 1,000 mg PO BID 05/29/20 05/09/22 History vitamin B complex 1 tab PO QAM 05/29/20 05/09/22 History cholecalciferol (vitamin D3) 50 4,000 unit PO QAM 12/14/20 05/09/22 History mcg (2,000 unit) tablet (Vitamin D3) colchicine 0.6 mg tablet 0.6 mg PO BID #180 tabs 11/07/21 05/09/22 Rx omeprazole 40 mg capsule,delayed 40 mg PO DAILY #90 caps 11/25/21 05/09/22 Rx release ipratropium bromide 42 mcg (0.06 2 spray intranasal QPM PRN allergy 02/18/22 05/09/22 Rx %) nasal spray symptoms #15 mL amlodipine 10 mg tablet 10 mg PO DAILY #90 tabs 03/03/22 05/09/22 Rx losartan 100 mg tablet 100 mg PO DAILY #90 tabs 03/03/22 05/09/22 Rx meloxicam 7.5 mg tablet 7.5 mg PO DAILY PRN pain #90 tabs 04/30/22 05/09/22 Rx simvastatin 10 mg tablet 10 mg PO QPM #90 tabs 04/30/22 05/09/22 Rx trazodone 50 mg tablet 50 mg PO HS 05/09/22 05/09/22 History Past Med/Surg History Medical History Allergic rhinitis Cervical radicular pain CTS (carpal tunnel syndrome) Dyslipidemia Gout Hyperglycemia Hypertension Left shoulder pain Obstructive sleep apnea of adult Right ear pain Uvulitis Vitamin D deficiency Surgical History History of dental surgery History of laparoscopic cholecystectomy (2018) Family History Grandmother (Maternal) Breast cancer Brother Thyroid cancer Other Allergic rhinitis Denies family history of Ovarian cancer Prostate cancer Myocardial infarction Colorectal cancer Social History Smoking Status: Never smoker Tobacco Type: Smokeless Tobacco (Dip or Chew) Age Started Using Tobacco: 11; packs per day: 1; Cigarettes Per Day: 1 CAN DAILY; Second Hand Exposure: No; Hx Alcohol Use: Yes Alcohol type: beer Alcohol Intake Frequency Comment: 3/day Hx Substance Use: No Preferred Language: Kinyarwanda Communication Ability: Effective Visual Impairment: No Limitations Hearing Ability: Normal 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 Beliefs That Will Affect Care: None marital status: Current Living Situation: Spouse current occupational status: employed current occupation: laid off currently How many Children do You have: 1 Feels Safe at Home: Yes Childhood Exposure to Second-Hand Smoke: Yes caffeine: Yes during the past year weight has: remained stable Dental Care, Regularly: No Physical Activity Frequency: 1-2 Times per Week Seatbelt Use: always Sunscreen Use: No Do you think of yourself as: straight/heterosexual Review of Systems Review of Systems: Constitutional: No fever/chills, weakness, fatigue, myalgias, anorexia, night sweats Eyes: No diplopia, no worsening or blurred vision ENT: normal hearing, no trouble swallowing Respiratory: No cough, sputum, dyspnea at rest or on exertion Cardiovascular: No chest pain, tightness or palpitations Abdomen: No pain, nausea, vomiting, diarrhea or constipation : Denies dysuria, hematuria, increased urgency/frequency, urinary retention Musculoskeletal: Left foot pain; otherwise no joint pain, calf pain, swelling Neurologic: No weakness, numbness/tingling, or balance problems Psychiatric: No anxiety or depression Skin: No rash or itch Physical Exam Physical Exam: General: awake, alert, no apparent distress Head: Normocephalic, atraumatic ENT: PERRL, EOMI, no pharyngeal exudate, mucous membranes moist Chest: Clear to auscultation, on room air, no adventitious breath sounds Cardiac: Regular rate and rhythm, no murmur, no JVD, normal peripheral pulses, good capillary refill Abdominal: NABS x 4 quadrants, soft, nontender to palpation, no rebound, guarding or tenderness Extremities: There is a deep deep gash through digits 1 through 3 on the left foot, minimal swelling, pulses are intact, skin is warm, not tender to touch; otherwise normal inspection, no peripheral edema or erythema, calfs nontender to palpation Psych: Normal mood and affect Neuro: AAO x 3, strength intact bilaterally and rated 5/5, no motor deficits, speech is clear, no peripheral sensory deficits Skin: no rash or erythema Results & Data Results & Data ([facility]) Vital Signs (Past 12 Hours) Vital Signs Temp Pulse Resp BP Pulse Ox O2 Del Method 05/09/22 16:45 Room Air 05/09/22 16:22 36.5 C 114 H 18 172/115 H 98 Room Air Laboratory Results Abnormal lab results 05/09/22 05/09/22 Range/Units 16:27 16:37 Immature Gran # (Auto) 0.03 H (0.00-0.02) K/uL Glucose 128 H (70-99(Fasting)) mg/dl Diagnostic Findings Foot X-Ray 05/09/22 16:39 XR foot LT min 3V routine CLINICAL HISTORY: open fx over toes TECHNIQUE: 3 views of the left foot were obtained. Comparison: None available at the time of this dictation. FINDINGS: There is a fracture of the distal phalanx of the first digit middle phalanx of the second digit. Soft tissue lacerations are seen. Soft tissue swelling is seen. There are a few punctate radiodense foreign bodies. The joint spaces are well preserved. IMPRESSION: Fractures of the distal phalanx of the first digit and middle phalanx of the second digit. There is associated soft tissue laceration. A few punctate radiodense foci in the soft tissues may represent foreign bodies. ACT 112: Negative or not required by law. Electronically signed by: Stuart Sofia M.D. 05/09/2022 5:16 PM Code Status & VTE Plan Code Status Full code Supervising Physician Co-Signing Physician Notes Patient seen and examined, chart reviewed, case discussed with Abena Lozoya PA-C and I agree with the assessment and plan as above except as otherwise noted Labs and images reviewed 41-year-old male with a past medical history of hypertension, hyperglycemia, dyslipidemia who presented with open fractures of the distal phalanx of the first digit and middle phalanx of the second digit of the left foot with soft tissue lacerations and potential foreign bodies after he dropped a sawblade on his foot. Podiatry has been consulted, to proceed to the OR for washout with Dr. Street today. Tetanus is up-to-date. 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 On admission no leukocytosis, hemoglobin is normal, coagulation panel is normal, there are no electrolyte derangements, and creatinine is 0.99 on admission with a normal baseline. COVID is negative. Traumatic fracture of left first and second digits: Podiatry consulted. Washout pending. Requested for admit to medicine given medical comorbidities. Agree with management above. Agree with chronic issue management above. PG Care Time/CCT Total # of Minutes Spent Total Time Spent with Patient: Total time spent is greater than 50% in coordination of care (as documented) at patient's floor/unit and/or counseling patient: Coding Level of Care Code 31339 Initial Inpt Care Lvl 3 Diagnoses Open fracture of foot S92.909B Obstructive sleep apnea of adult G47.33 Hypertension I10 Hypertension type: essential hypertension Dyslipidemia E78.5 Allergic rhinitis J30.9 Hyperglycemia R73.9 (1) Hypertension Hypertension type: essential hypertension Qualified Code(s): I10 - Essential (primary) hypertension
--- NOTE | 2022-05-09 18:30 | Emergency Department Note ---
General (ED) Blank Date of Service May 09, 2022 ED Visit Note I personally performed a history and examined the patient in conjunction with Dr. Fields. Additional information regarding the history, physical, assessment, and plan were discussed with supervising attending physician and are noted in their ED visit note. Resident Activity Tracking Resident Involvement: Resident Care Provided Care Provided: Adult ED : Fracture of toe Qualifiers: Encounter type: initial encounter Toe: unspecified toe Fracture type: open Fracture alignment: displaced Laterality: unspecified laterality Qualified Code(s): S92.919B - Unspecified fracture of unspecified toe(s), initial encounter for open fracture
[2022-05-09] MEDS ORDERED: LIDOCAINE 1% LOCAL 20 ML VIAL ONE (19:09)
--- NOTE | 2022-05-09 19:21 | Orthopedic Consultation ---
Date of Consultation May 09, 2022 Assessment & Plan (1) Open fracture of foot: Patient seen, evaluated, and treated. Discussed imaging and physical exam with Patient and . Recommend wash out, possible reapproximation of soft tissue grossly. Patient and voice understanding and consent. I reviewed procedure in detail as well as postoperative recovery. I discussed expectations and patient's current weightbearing status. All questions answered. I have discussed procedure in detail as well as postoperative recovery. All potential risks, benefits, complications, alternatives, rehab, potential for incomplete relief of symptoms, need for further surgery, DVT, PE, , persistent pain, swelling, scarring, weakness, neurovascular, wound complications and potential for amputations were discussed with patient. Unwanted outcomes such as, but not limited to were reviewed including under correction, overcorrection, return of deformity, infection. All questions were answered. Patient has decided to proceed with procedure as indicated. (2) Fracture of toe: History of Present Illness Attending Physician: Rocky Street DPM, [place] History of Present Illness Patient is a pleasant, 41-year-old male with a past medical history of hypertension, hyperglycemia, dyslipidemia. Patient presents with who helps with history and care. Patient was seen in [facility] ED for open fractures of the distal phalanx of the first digit and middle phalanx of the second digit of the left foot with soft tissue lacerations and potential foreign bodies after he dropped a sawblade on his foot. Tetanus is up-to-date. 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 Allergies Allergy/AdvReac Type Severity Reaction Status Date / Time No Known Allergies Allergy Unknown Unverified 05/09/22 17:20 Home Medications Medication Instructions Recorded Confirmed Type flaxseed oil 1,000 mg capsule 1,000 mg PO BID 05/29/20 05/09/22 History vitamin B complex 1 tab PO QAM 05/29/20 05/09/22 History cholecalciferol (vitamin D3) 50 4,000 unit PO QAM 12/14/20 05/09/22 History mcg (2,000 unit) tablet (Vitamin D3) colchicine 0.6 mg tablet 0.6 mg PO BID #180 tabs 11/07/21 05/09/22 Rx omeprazole 40 mg capsule,delayed 40 mg PO DAILY #90 caps 11/25/21 05/09/22 Rx release ipratropium bromide 42 mcg (0.06 2 spray intranasal QPM PRN allergy 02/18/22 05/09/22 Rx %) nasal spray symptoms #15 mL amlodipine 10 mg tablet 10 mg PO DAILY #90 tabs 03/03/22 05/09/22 Rx losartan 100 mg tablet 100 mg PO DAILY #90 tabs 03/03/22 05/09/22 Rx meloxicam 7.5 mg tablet 7.5 mg PO DAILY PRN pain #90 tabs 04/30/22 05/09/22 Rx simvastatin 10 mg tablet 10 mg PO QPM #90 tabs 04/30/22 05/09/22 Rx trazodone 50 mg tablet 50 mg PO HS 05/09/22 05/09/22 History Patient History Medical History Allergic rhinitis Cervical radicular pain CTS (carpal tunnel syndrome) Dyslipidemia Gout Hyperglycemia Hypertension Left shoulder pain Obstructive sleep apnea of adult Right ear pain Uvulitis Vitamin D deficiency Surgical History History of dental surgery History of laparoscopic cholecystectomy (2018) Family History Grandmother (Maternal) Breast cancer Brother Thyroid cancer Other Allergic rhinitis Denies family history of Ovarian cancer Prostate cancer Myocardial infarction Colorectal cancer Social History Smoking Status: Never smoker Tobacco Type: Smokeless Tobacco (Dip or Chew) Age Started Using Tobacco: 11; packs per day: 1; Cigarettes Per Day: 1 CAN DAILY; Second Hand Exposure: No; Hx Alcohol Use: Yes Alcohol type: beer Alcohol Intake Frequency Comment: 3/day Hx Substance Use: No Preferred Language: Albanian Communication Ability: Effective Visual Impairment: No Limitations Hearing Ability: Normal 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 Required: No Beliefs That Will Affect Care: None marital status: Current Living Situation: Spouse current occupational status: employed current occupation: laid off currently How many Children do You have: 1 Feels Safe at Home: Yes Childhood Exposure to Second-Hand Smoke: Yes caffeine: Yes during the past year weight has: remained stable Dental Care, Regularly: No Physical Activity Frequency: 1-2 Times per Week Seatbelt Use: always Sunscreen Use: No Do you think of yourself as: straight/heterosexual Review of Systems Review of Systems: All systems reviewed & are unremarkable except as noted in HPI & below Physical Exam Eyes: PERRL, conjunctivae normal, anicteric sclerae ENMT: external ear and nose normal, oropharynx normal Respiratory: normal respiratory effort Cardiovascular: Pedal pulses are palpable. DEPLOYMENT MANAGER wnl. Skin: Open full thickness lacerations with exposed bone left foot digits 1, 2, 3. Neurologic: Gross epicritic sensation intact. Psychiatric: A+Ox3, euthymic affect Results & Data ([facility]) Vital Signs (Past 12 Hours) Vital Signs Temp Pulse Pulse Resp BP BP Pulse Ox 05/09/22 18:20 37.1 C 87 22 150/99 H 100 05/09/22 17:30 87 17 96 05/09/22 17:30 148/93 H 05/09/22 17:17 91 H 17 94 05/09/22 17:17 151/96 H 05/09/22 17:00 94 H 16 96 05/09/22 16:31 103 H 16 97 05/09/22 16:30 195/118 H 05/09/22 16:45 05/09/22 16:22 36.5 C 114 H 18 172/115 H 98 O2 Del Method 05/09/22 18:20 Room Air 05/09/22 17:30 05/09/22 17:30 05/09/22 17:17 05/09/22 17:17 05/09/22 17:00 05/09/22 16:31 05/09/22 16:30 05/09/22 16:45 Room Air 05/09/22 16:22 Room Air Diagnostic Findings XR foot LT min 3V routine CLINICAL HISTORY: open fx over toes TECHNIQUE: 3 views of the left foot were obtained. Comparison: None available at the time of this dictation. FINDINGS: There is a fracture of the distal phalanx of the first digit middle phalanx of the second digit. Soft tissue lacerations are seen. Soft tissue swelling is seen. There are a few punctate radiodense foreign bodies. The joint spaces are well preserved. IMPRESSION: Fractures of the distal phalanx of the first digit and middle phalanx of the second digit. There is associated soft tissue laceration. A few punctate radiodense foci in the soft tissues may represent foreign bodies. ACT 112: Negative or not required by law. Electronically signed by: Stuart Sofia M.D. 05/09/2022 5:16 PM (1) Fracture of toe Encounter type: initial encounter Fracture alignment: displaced Fracture type: open Laterality: unspecified laterality Toe: unspecified toe Qualified Code(s): S92.919B - Unspecified fracture of unspecified toe(s), initial encounter for open fracture
--- NOTE | 2022-05-09 19:24 | History & Physical Bridge Note ---
Date of Service May 09, 2022 History & Physical Bridge Note I have examined the patient, reviewed the History & Physical and in the interval since the performance of the History & Physical I have noted the following changes of clinical significance: no changes noted
--- NOTE | 2022-05-09 19:28 | Anesthesiology Consultation ---
Date of Service May 09, 2022 Assessment & Plan Chart Review Chart Review: Acceptable Risk for Surgery Consults Requested none History Surgery Operation Date: 05/09/22 11:40 Proposed Procedures p Washout of Left Foot - Rocky Street DPM, MS Height/Weight Height: 6 ft 1 in Weight: 156.8 kg Allergies Allergy/AdvReac Type Severity Reaction Status Date / Time No Known Allergies Allergy Unknown Unverified 05/09/22 17:20 Medications Home Medications Medication Instructions Recorded Confirmed Last Taken flaxseed oil 1,000 mg capsule 1,000 mg PO BID 05/29/20 05/09/22 12/14/20 vitamin B complex 1 tab PO QAM 05/29/20 05/09/22 12/14/20 cholecalciferol (vitamin D3) 50 4,000 unit PO QAM 12/14/20 05/09/22 12/14/20 mcg (2,000 unit) tablet (Vitamin D3) colchicine 0.6 mg tablet 0.6 mg PO BID #180 tabs 11/07/21 05/09/22 Unknown omeprazole 40 mg capsule,delayed 40 mg PO DAILY #90 caps 11/25/21 05/09/22 Unknown release ipratropium bromide 42 mcg (0.06 2 spray intranasal QPM PRN allergy 02/18/22 05/09/22 Unknown %) nasal spray symptoms #15 mL amlodipine 10 mg tablet 10 mg PO DAILY #90 tabs 03/03/22 05/09/22 Unknown losartan 100 mg tablet 100 mg PO DAILY #90 tabs 03/03/22 05/09/22 Unknown meloxicam 7.5 mg tablet 7.5 mg PO DAILY PRN pain #90 tabs 04/30/22 05/09/22 Unknown simvastatin 10 mg tablet 10 mg PO QPM #90 tabs 04/30/22 05/09/22 Unknown trazodone 50 mg tablet 50 mg PO HS 05/09/22 05/09/22 Unknown Active Medications Generic Name Dose Route Start Last Admin Trade Name Freq PRN Reason Stop Dose Admin Vancomycin HCl 2,750 mg/ 555 mls @ 180 mls/hr 05/09/22 17:00 05/09/22 17:15 Sodium Chloride IV 05/09/22 20:04 180 mls/hr NOW ONE Administration Sodium Chloride 1,000 mls @ 125 mls/hr 05/09/22 16:45 05/09/22 16:47 Nss 1000ml IV 06/08/22 16:44 125 mls/hr .Q8H PEGGY Administration NPO Date Last Intake of Fluids: 05/09/22 Time Last Intake of Fluids: 15:00 Date Last Intake of Solids: 05/09/22 Time Last Intake of Solids: 13:00 Past Medical History Medical History Allergic rhinitis Cervical radicular pain CTS (carpal tunnel syndrome) Dyslipidemia Gout Hyperglycemia Hypertension Left shoulder pain Obstructive sleep apnea of adult Right ear pain Uvulitis Vitamin D deficiency Past Family History Family History Grandmother (Maternal) Breast cancer Brother Thyroid cancer Other Allergic rhinitis Denies family history of Ovarian cancer Prostate cancer Myocardial infarction Colorectal cancer Past Surgical History Surgical History History of dental surgery History of laparoscopic cholecystectomy (2018) Social History Smoking Status: Never smoker Smoking cigarettes per day: 1 CAN DAILY Hx Alcohol Use: Yes Alcohol type: beer Hx Substance Use: No Physical Exam Vital Signs Last Vital Signs Temp 37.1 C 05/09/22 18:20 Pulse 87 05/09/22 18:20 Resp 22 05/09/22 18:20 BP 150/99 H 05/09/22 18:20 Pulse Ox 100 05/09/22 18:20 O2 Del Method 05/09/22 18:20 Testing Laboratory Results 05/09/22 16:27 05/09/22 16:37 PT 10.3 Seconds (9.0-12.0) 05/09/22 16:27 INR 1.0 (0.9-1.1) 05/09/22 16:27 APTT 24.4 Seconds (21.0-31.0) 05/09/22 16:27
[2022-05-09] MEDS ORDERED: ONDANSETRON INJ 2 MG/ML 2 ML VIAL IV PRN ×2 (19:30→23:19)
[2022-05-09] MEDS ORDERED: HYDROmorphone INJ 2 MG/ML SYR/VIAL IV PRN (19:30)
[2022-05-09] MEDS ORDERED: PROMETHAZINE HCL 12.5 MG in SODIUM CHLORIDE 0.9% 50 ML IV PRN (19:30)
[2022-05-09] MEDS ORDERED: ATROPINE SULFATE 0.1 MG/ML 10ML SYR IV PRN (19:30)
[2022-05-09] MEDS ORDERED: ePHEDrine sulfate 50 MG/ML AMP IV PRN (19:30)
[2022-05-09] MEDS ORDERED: MIDAZOLAM HCL 1 MG/ML 2ML VIAL ONE (19:33)
[2022-05-09] MEDS ORDERED: fentaNYL citrate 100 MCG/2 ML VIAL ONE ×3 (19:34→21:28)
[2022-05-09] MEDS ORDERED: BUPIVACAINE 0.5 % 5 MG/1 ML MPF 30ML VIAL INJ ONE (20:34)
[2022-05-09] MEDS ORDERED: PROPOFOL IV EMULSION 10 MG/ML 20 ML VIAL IV ONE (20:38)
[2022-05-09] MEDS: fentaNYL citrate 100 MCG/2 ML VIAL IV PRN ×2 (21:28→21:33)
--- NOTE | 2022-05-09 21:36 | Operative Report ---
Post Operative Report Pre & Post Diagnosis Operation Date: 05/09/22 11:40 Pre-Op Diagnosis: Open fracture of left foot Post-Op Diagnosis: Open fracture of left foot I identified the patient and participated in the time-out.: Yes Procedure Operation Date: 05/09/22 11:40 Actual Procedures Incision and Drainage Debridement of Left Foot; Laceration of Non Viable Bone and Soft Tissue(Left) - Rocky Street DPM, MS Surgeon Rocky Street DPM, MS Ocean Export Account Manager none Estimated Blood Loss 30 Findings Consistent with Post-Op Diagnosis Incomplete amputation of 1st, 2nd, 3rd, and 4th toes with complete extensor te ndon laceration, complete phalanx fracture and dislocation, and incomplete flexor laceration. Extent of vascular compromise unknown. Specimens None Drains None Description of Procedure History of present illness: Patient is a well-developed well-nourished 41-year-old male who was seen in [facility] ED for open fracture of right foot. Patient notes logging accident occurred earlier in day where part of saw fell and lacerated 1st, 2nd, 3rd, and 4th toes resulting in open fractures, tendon lacerations, and neuro vascular compromise. I discussed extent of damage with Patient and who are electing for limb salvage. Discussed procedure in detail as well as postoperative recovery. All potential risks, benefits, complications, alternatives, rehab, potential for incomplete relief of symptoms, need for further surgery, DVT, PE, , persistent pain, swelling, scarring, weakness, neurovascular, wound complications and potential for amputations were discussed with patient. Unwanted outcomes such as, but not limited to were reviewed including under correction, overcorrection, return of deformity, infection. All questions were answered. Patient has decided to proceed with procedure as indicated. Preoperative diagnosis: 1.) Right First distal phalanx open fracture 2.) Right Extensor Hallucis Longus laceration 3.) Right Second Intermediate phalanx open fracture 4.) Right Second Extensor Digitorum longus and brevis laceration 5.) Right Third toe Extensor Digitorum longus and brevis laceration 6.) RIght fourth toe Extensor Digitorum longus and brevis laceration Postoperative diagnosis: Same Name of operation: 1.) Right First distal phalanx open fracture washout and reduction 2.) Right Extensor Hallucis Longus repair 3.) Right Second Intermediate phalanx washout and reduction 4.) Right Second Extensor Digitorum longus and brevis repair 5.) Right Third toe Extensor Digitorum longus and brevis repair 6.) Right fourth toe Extensor Digitorum longus and brevis repair Surgeon: Dr. Street Ocean Export Account Manager: None Anesthesia: Local with monitored anesthesia care Estimated blood loss: Minimal Procedure in detail: Under mild sedation the patient was brought in the operating room placed on the operating table in supine position. A Pneumatic ankle tourniquet was then placed about the patient's right ankle. Following IV sedation, local anesthesia was obtained about the right foot utilizing 10 cc of a 1:1 mixture of 1% li docaine plain and 0.5% Marcaine plain. The foot was then prepped, scrubbed, and draped, in the usual aseptic manner. Evaluation of lacerations of the first, second, third, and fourth digits were c losely examined. Immediate concern was noted due to depth of First and Second toe lacerations which extend from dorsal through phalanx into plantar tissue with limited intact soft tissue. Capillary refill time within normal limits. Debris was carefully removed from lacerations of first, second, third, and fourth digits of right foot with pick ups. 3L of lactate ringer on low flow was used to flush wounds thoroughly. Right First and Second phalanx open reduction with out incident. Right Extensor Hallucis Longus approximation and repair utilizing 4-0 PDS. Right Second Extensor Digitorum longus and brevis approximation and repair utilizing 4-0 PDS. Right Third toe Extensor Digitorum longus and brevis approximation and repair. Right fourth toe Extensor Digitorum longus and brevis approximation and repair. The deep structures were coapted utilizing 4-0 PDS and the skin was reapproximated coapted utilizing horizontal suture technique with 4-0 nylon. Again, capillary refill time within normal limits.. The incision was dressed with Betadine soaked Adaptic followed by sterile dressing consisting of Foam, 4 x 4's and Twan. A posterior splint, Srinath wrap, postoperative shoe were then applied. Patient tolerated procedure and anesthesia well. He was transferred to recovery room with vital signs stable and vascular status continued to be intact to toes of the right foot. Following a period of Postoperative monitoring. The patient will be admitted to the floor. Contact Dr. Street for all postoperative care if any problems arise. I attest to the content of the Intraoperative Record and any orders documented therein. Any exceptions are noted below.
--- NOTE | 2022-05-09 21:36 | Post Operative Brief Note ---
Immediate Post Op Note v1 Date of Surgery May 09, 2022 Pre & Post Diagnosis Operation Date: 05/09/22 11:40 Pre-Op Diagnosis: Open fracture of left foot Post-Op Diagnosis: Open fracture of left foot I identified the patient and participated in the time-out.: Yes Procedure Operation Date: 05/09/22 11:40 Actual Procedures p Incision and Drainage Debridement of Left Foot; Laceration of Non Viable Bone and Soft Tissue(Left) - Rocky Street DPM, MS Surgeon Rocky Street DPM, MS Long Term Care Social Worker none Estimated Blood Loss 30 Findings Consistent with Post-Op Diagnosis severe risk for loss of toes of right foot
--- NOTE | 2022-05-09 22:08 | Anesthesiology Progress Note ---
Date of Service May 09, 2022 Anesthesia Post Procedure Vital Signs Vital Signs: Temp Pulse Pulse Resp BP BP Pulse Ox 05/09/22 21:45 76 18 143/94 H 99 05/09/22 21:35 74 18 139/91 99 05/09/22 21:26 36.7 C 69 18 148/94 H 98 05/09/22 18:20 37.1 C 87 22 150/99 H 100 05/09/22 17:30 87 17 96 05/09/22 17:30 148/93 H 05/09/22 17:17 91 H 17 94 05/09/22 17:17 151/96 H 05/09/22 17:00 94 H 16 96 05/09/22 16:31 103 H 16 97 05/09/22 16:30 195/118 H 05/09/22 16:45 05/09/22 16:22 36.5 C 114 H 18 172/115 H 98 O2 Del Method 05/09/22 21:45 Room Air 05/09/22 21:35 Room Air 05/09/22 21:26 Room Air 05/09/22 18:20 Room Air 05/09/22 17:30 05/09/22 17:30 05/09/22 17:17 05/09/22 17:17 05/09/22 17:00 05/09/22 16:31 05/09/22 16:30 05/09/22 16:45 Room Air 05/09/22 16:22 Room Air Pain Intensity Left Foot: Pain Intensity: 4 Transfer of Care Handoff Completed per policy Notes Mental Status: alert / awake / arousable and participated in evaluation Patient Amnestic to Procedure: Yes Nausea / Vomiting: adequately controlled Pain: adequately controlled Airway Patency, RR, SpO2: stable & adequate BP & HR: stable & adequate Hydration State: stable & adequate Anesthetic Complications: no major complications apparent
[2022-05-09] MEDS ORDERED: MELOXICAM 7.5 MG TAB PO PRN (23:19)
[2022-05-09] MEDS ORDERED: HYDROmorphone INJ 0.5 MG/0.5 ML SYR IV PRN (23:19)
[2022-05-09] MEDS ORDERED: POLYETHYLENE (MIRALAX) 17 GM PACK PO PRN (23:19)
[2022-05-09] MEDS ORDERED: KETOROLAC 30 MG/ML VIAL IV PRN (23:19)
[2022-05-09] MEDS ORDERED: ACETAMINOPHEN 1,000 MG/100 ML VIAL IV PRN (23:19)
[2022-05-09] MEDS ORDERED: VANCOMYCIN CONSULT ACTIVE PRN (23:19)
[2022-05-09] MEDS ORDERED: IPRATROPIUM BROMIDE NASAL SPRAY 0.06% 15ML PRN (23:19)
[2022-05-10] MEDS: SODIUM CHLORIDE 0.9% 1000ML 1,000 ML IV SCH ×2 (00:08→07:30)
[2022-05-10] MEDS: PIPERACILLIN/TAZOBACTAM 4.5 GM in DEXTROSE 5% 100 ML IV SCH ×2 (00:27→07:28)
[2022-05-10] MEDS: COLCHICINE 0.6 MG TAB PO SCH ×3 (00:30→20:23)
[2022-05-10] MEDS: OMEGA-3 (PURIFIED FISH OIL) 1 GM CAP PO SCH ×3 (00:31→20:24)
[2022-05-10] MEDS: traZODone HCL 50 MG TAB PO SCH ×2 (00:32→20:23)
[2022-05-10] MEDS: SIMVASTATIN 10 MG TAB PO SCH ×2 (00:32→20:24)
[2022-05-10] MEDS ORDERED: VANCOMYCIN HCL 1,500 MG in SODIUM CHLORIDE 0.9% 500 ML IV SCH (04:00)
[2022-05-10] MEDS: HYDROmorphone INJ 0.5 MG/0.5 ML SYR IV PRN ×2 (04:18→07:27)
[2022-05-10] MEDS: VITAMIN B COMPLEX TAB PO SCH (08:18)
[2022-05-10] MEDS: PANTOprazole 40 MG TAB PO SCH (08:18)
[2022-05-10] MEDS: amLODIPine BESYLATE 5 MG TAB PO SCH (08:18)
[2022-05-10] MEDS: LOSARTAN POTASSIUM 50 MG TAB PO SCH (08:18)
[2022-05-10] MEDS: CHOLECALCIFEROL 1,000 UNITS 25 MCG TAB PO SCH (08:19)
--- NOTE | 2022-05-10 10:28 | Pharmacy Report ---
Pharmacy PK ABX Note - Date of Service May 10, 2022 - Assessment and Plan Assessment 41 year old M receiving Vancomycin and Zosyn for treatment of open fracture of left foot. * Went to the OR last evening for washout. * Afebrile and without leukocytosis. Plan Vancomycin * Loading dose: 2750 mg IV x 1 * Maintenance dose: 1500 mg IV every 12 hours * Regimen is predicted to achieve target AUC/ALEX of 400-600 mg/L.hr * Random level will be ordered if therapy extends beyond 48 hours. Pharmacy will continue to follow and will adjust dose/frequency as necessary. Thank you. Pharmacy has transitioned to AUC monitoring for vancomycin. AUC/ALEX is the p referred PK/PD target and is associated with decreased risk of nephrotoxicity compared to traditional trough targets.
--- NOTE | 2022-05-10 13:55 | Hospitalist Progress Note ---
Date of Service May 10, 2022 Assessment & Plan (1) Open fracture of foot: Plan: - Circular blade dropped on foot earlier this afternoon. - Left foot XR: Fractures of the distal phalanx of the first digit and middle phalanx of the second digit. There is associated soft tissue laceration. A few punctate radiodense foci in the soft tissues may represent foreign bodies. - Last tetanus in December 2020. - Podiatry consulted by ED, Dr. Street performed I&D of L foot, laceration of nonviable bone and soft tissue on 05/09 - Pain control with IV Tylenol/Toradol, Dilaudid-fortunately, pt is having minimal pain so will stop Dilaudid and order PRN OxyIR for severe pain - Initially placed on Zosyn/Vanc-pt has no h/o MRSA, no allergies - Will change abx to Rocephin 2g IV daily to provide gram+/- coverage, do not feel he requires MRSA coverage or pseudomonas - Anticipate NWB to L foot for now, activity/oob status per ortho (2) Obstructive sleep apnea of adult: Plan: - CPAP at night. (3) Hypertension: Plan: - Continue amlodipine, losartan. (4) Dyslipidemia: Plan: - Continue simvastatin. (5) Allergic rhinitis: Plan: - Inhaler as needed. (6) Hyperglycemia: Plan: - Elevated sugars, normal A1c, diet controlled. No need for Accu-Cheks. Plan Anticipate can get OOB w/ NWB to LLE. Will d/w Dr. Street. PT/OT eval once WB status is clarified. D/C planning when ok with Dr. Street. Continue empiric abx which can be changed to oral upon d/c. Plan d/w Dr. Hollingsworth. Admission and Anticipated Discharge Date Admission Date: May 09, 2022 Subjective Patient seen on daily rounds this morning. He is resting comfortably in bed, reports minimal soreness of his L foot. He denies cp or dyspnea. Review of Systems Review of Systems: All systems reviewed and are unremarkable except as noted in HPI and below. Denies fever, chills, fatigue, headache, nasal congestion, sore throat, cough, chest pain, shortness of breath, palpitations, orthopnea, PND, abdominal pain, n/v/d, constipation, dysuria, hematuria, frequency, back pain, joint pain or swelling, easy bruising or bleeding. Physical Exam Physical Exam: GENERAL: 41 yo well-developed, well-nourished obese WM. NAD. LUNGS: Clear to auscultation bilaterally. No accessory muscle use. No W/R/R. CARDIOVASCULAR: Regular rate and rhythm. No M/G/R. No JVD. ABDOMEN: Soft, non-tender and non-distended. BS normoactive x 4 quad. EXTREMITIES: No edema. Non-tender. Peripheral pulses +2/4. NEUROLOGIC: A&O x3. PSYCHIATRIC: Cooperative. Appropriate mood and affect. SKIN: Warm, dry, intact. L foot and ankle is heavily dressed. Results & Data Results & Data ([facility]) Vital Signs (Past 12 Hours) Vital Signs Temp Pulse Resp BP BP Pulse Ox O2 Del Method 05/10/22 11:10 36.8 C 75 16 146/89 H 96 Room Air 05/10/22 07:37 36.7 C 80 16 148/97 H 95 Room Air 05/10/22 04:21 36.5 C 72 18 134/87 99 Room Air Laboratory Results 05/09/22 16:27 05/09/22 16:37 PG Care Time/CCT Total # of Minutes Spent Total Time Spent with Patient: Total time spent is greater than 50% in coordination of care (as documented) at patient's floor/unit and/or counseling patient: Coding Level of Care Code 44242 Subseq Hosp Care Lvl 2 Diagnoses Open fracture of foot S92.909B Obstructive sleep apnea of adult G47.33 Hypertension I10 Hypertension type: essential hypertension Dyslipidemia E78.5 Allergic rhinitis J30.9 Hyperglycemia R73.9 (1) Hypertension Hypertension type: essential hypertension Qualified Code(s): I10 - Essential (primary) hypertension
[2022-05-10] MEDS ORDERED: oxyCODONE HCL IR 5 MG TAB (IMMEDIATE RELEASE) PO PRN (14:04)
[2022-05-10] MEDS: cefTRIAXone SODIUM 2,000 MG in DEXTROSE 5% 50 ML IV SCH (14:31)
[2022-05-10] MEDS: KETOROLAC 30 MG/ML VIAL IV PRN (21:08)
--- NOTE | 2022-05-10 21:49 | Orthopedic Progress Note ---
Date of Service May 10, 2022 Assessment & Plan (1) Open fracture of foot: Plan: Patient seen, evaluated and treated. Capillary refill remains within normal limits to all toes.' I have discussed with Patient that next 48 hours there is great need for protection while soft tissue demarcates. Patient and understand. Non weight bearing to surgical foot. Patient does have bathroom privileges with walker. Discussed consult with PT. Discussed possible discharge Thursday. (2) Fracture of toe: Admission and Anticipated Discharge Date Admission Date: May 09, 2022 Subjective Patient is status post day 1 Left foot surgery. Physical Exam Physical Exam: Dressing clean dry and intact Results & Data ([facility]) Vital Signs (Past 12 Hours) Vital Signs Temp Pulse Resp BP Pulse Ox O2 Del Method 05/10/22 20:22 36.9 C 79 16 147/87 H 94 Room Air 05/10/22 15:36 36.7 C 82 16 149/74 H 95 Room Air 05/10/22 11:10 36.8 C 75 16 146/89 H 96 Room Air (1) Fracture of toe Encounter type: initial encounter Fracture alignment: displaced Fracture type: open Laterality: unspecified laterality Toe: unspecified toe Qualified Code(s): S92.919B - Unspecified fracture of unspecified toe(s), initial encounter for open fracture
[2022-05-11] MEDS: PANTOprazole 40 MG TAB PO SCH (08:05)
[2022-05-11] MEDS: VITAMIN B COMPLEX TAB PO SCH (08:05)
[2022-05-11] MEDS: COLCHICINE 0.6 MG TAB PO SCH ×2 (08:05→21:40)
[2022-05-11] MEDS: amLODIPine BESYLATE 5 MG TAB PO SCH (08:05)
[2022-05-11] MEDS: OMEGA-3 (PURIFIED FISH OIL) 1 GM CAP PO SCH ×2 (08:05→21:40)
[2022-05-11] MEDS: LOSARTAN POTASSIUM 50 MG TAB PO SCH (08:06)
[2022-05-11] MEDS: CHOLECALCIFEROL 1,000 UNITS 25 MCG TAB PO SCH (08:06)
--- NOTE | 2022-05-11 11:13 | Hospitalist Progress Note ---
Date of Service May 11, 2022 Assessment & Plan (1) Open fracture of foot: Plan: - Circular blade dropped on foot earlier this afternoon. - Left foot XR: Fractures of the distal phalanx of the first digit and middle phalanx of the second digit. There is associated soft tissue laceration. A few punctate radiodense foci in the soft tissues may represent foreign bodies. - Last tetanus in December 2020. - Podiatry consulted by ED, Dr. Street performed I&D of L foot, laceration of nonviable bone and soft tissue on 05/09 - Pain control with IV Tylenol/Toradol, Dilaudid-fortunately, pt is having minimal pain so will stop Dilaudid and order PRN OxyIR for severe pain - Initially placed on Zosyn/Vanc-pt has no h/o MRSA, no allergies - Changed abx to Rocephin 2g IV daily on 05/09 to provide gram+/- coverage, do not feel he requires MRSA or pseudomonal coverage - Anticipate NWB to L foot for now, activity/oob status per ortho (2) Obstructive sleep apnea of adult: Plan: - CPAP at night. (3) Hypertension: Plan: - Continue amlodipine, losartan. (4) Dyslipidemia: Plan: - Continue simvastatin. (5) Allergic rhinitis: Plan: - Inhaler as needed. (6) Hyperglycemia: Plan: - Elevated sugars, normal A1c, diet controlled. No need for Accu-Cheks. Plan Continue to monitor additional 24 hours as this is the most crucial time period to determine if the approximation will work and will be able to save the distal portion of the toes involved. Anticipate will be able to dc as early as tomorrow. Plan d/w Dr. Hollingsworth. Will also touch base with Dr. Street this afternoon. Admission and Anticipated Discharge Date Admission Date: May 09, 2022 Supervising Physician Co-Signing Physician Notes Case discussed with Maikel Baugh with above Subjective Patient seen on daily rounds this morning. He is resting comfortably in bed and offers no complaints/concerns. Endorses only mild soreness in his foot. Review of Systems Review of Systems: All systems reviewed and are unremarkable except as noted in HPI and below. Denies fever, chills, fatigue, headache, nasal congestion, sore throat, cough, chest pain, shortness of breath, palpitations, orthopnea, PND, abdominal pain, n /v/d, constipation, dysuria, hematuria, frequency, back pain, joint pain or swelling, easy bruising or bleeding. Physical Exam Physical Exam: GENERAL: 41 yo well-developed, well-nourished obese WM. NAD. LUNGS: Clear to auscultation bilaterally. No accessory muscle use. No W/R/R. CARDIOVASCULAR: Regular rate and rhythm. No M/G/R. No JVD. ABDOMEN: Soft, non-tender and non-distended. BS normoactive x 4 quad. EXTREMITIES: No edema. Non-tender. Peripheral pulses +2/4. NEUROLOGIC: A&O x3. PSYCHIATRIC: Cooperative. Appropriate mood and affect. SKIN: Warm, dry, intact. Top of L 1-3rd toe are visualized, cap refill <2 sec. Sensation intact. Results & Data Results & Data ([facility]) Vital Signs (Past 12 Hours) Vital Signs Temp Pulse Resp BP Pulse Ox O2 Del Method 05/11/22 07:15 36.9 C 90 16 150/93 H 97 Room Air Laboratory Results no labs today PG Care Time/CCT Total # of Minutes Spent Total Time Spent with Patient: Total time spent is greater than 50% in coordination of care (as documented) at patient's floor/unit and/or counseling patient: Coding Level of Care Code 62586 Subseq Hosp Care Lvl 2 Diagnoses Open fracture of foot S92.909B Obstructive sleep apnea of adult G47.33 Hypertension I10 Hypertension type: essential hypertension Dyslipidemia E78.5 Allergic rhinitis J30.9 Hyperglycemia R73.9 (1) Hypertension Hypertension type: essential hypertension Qualified Code(s): I10 - Essential (primary) hypertension
[2022-05-11] MEDS: cefTRIAXone SODIUM 2,000 MG in DEXTROSE 5% 50 ML IV SCH (13:18)
[2022-05-11] MEDS: SIMVASTATIN 10 MG TAB PO SCH (21:40)
[2022-05-11] MEDS: traZODone HCL 50 MG TAB PO SCH (21:40)
[2022-05-11] MEDS: KETOROLAC 30 MG/ML VIAL IV PRN (21:43)
--- NOTE | 2022-05-11 23:31 | Orthopedic Progress Note ---
Date of Service May 11, 2022 Assessment & Plan (1) Open fracture of foot: Plan: Patient seen, evaluated and treated. Capillary refill remains within normal limits to all toes.' Non weight bearing to surgical foot. Patient does have bathroom privileges with walker. Reviewed possible discharge Thursday per Medicine. (2) Fracture of toe: Admission and Anticipated Discharge Date Admission Date: May 09, 2022 Subjective Patient status post Day #2. Seen at bedside. No complaints. Review of Systems Review of Systems: All systems reviewed & are unremarkable except as noted in HPI & below Physical Exam Physical Exam: Dressing clean dry and intact Eyes: PERRL, conjunctivae normal, anicteric sclerae ENMT: external ear and nose normal, oropharynx normal Respiratory: normal respiratory effort Psychiatric: A+Ox3, euthymic affect Results & Data ([facility]) Vital Signs (Past 12 Hours) Vital Signs Temp Pulse Resp BP Pulse Ox O2 Del Method 05/11/22 21:49 36.4 C L 86 15 143/94 H 94 Room Air 05/11/22 14:59 36.7 C 83 16 127/74 94 (1) Fracture of toe Encounter type: initial encounter Fracture alignment: displaced Fracture type: open Laterality: unspecified laterality Toe: unspecified toe Qualified Code(s): S92.919B - Unspecified fracture of unspecified toe(s), initial encounter for open fracture
[2022-05-12] MEDS: amLODIPine BESYLATE 5 MG TAB PO SCH (08:20)
[2022-05-12] MEDS: VITAMIN B COMPLEX TAB PO SCH (08:21)
[2022-05-12] MEDS: LOSARTAN POTASSIUM 50 MG TAB PO SCH (08:21)
[2022-05-12] MEDS: CHOLECALCIFEROL 1,000 UNITS 25 MCG TAB PO SCH (08:21)
[2022-05-12] MEDS: COLCHICINE 0.6 MG TAB PO SCH (08:22)
[2022-05-12] MEDS: OMEGA-3 (PURIFIED FISH OIL) 1 GM CAP PO SCH (08:22)
[2022-05-12] MEDS: PANTOprazole 40 MG TAB PO SCH (08:22)
[2022-05-12] MEDS: cefTRIAXone SODIUM 2,000 MG in DEXTROSE 5% 50 ML IV SCH (13:21)
--- NOTE | 2022-05-12 15:58 | Discharge Summary ---
Date of Service May 12, 2022 Admission HPI Per Admitting Provider Yovanny Schmid is a 41-year-old male with a past medical history significant for CORTNEY, hypertension, dyslipidemia, and gout is presenting today after a circular cutter blade was dropped on his foot. 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 He did go through his steel toe boat and he felt instant pain. He had sensation of the foot, numbness or tingling, pain well controlled at this point. Voices no other complaints. X-ray of the left foot shows fracture of the distal phalanx of the first digit middle phalanx and second digit associated with soft tissue laceration, as well as few punctate radiodense foci in soft tissues which may be foreign bodies. Tetanus up-to-date, confirmed he received this in December 2020. Labs of unrevealing, hemoglobin 14.4 on admission. COVID-negative. Admission Exam Per Admitting Provider Physical Exam: General: awake, alert, no apparent distress Head: Normocephalic, atraumatic ENT: PERRL, EOMI, no pharyngeal exudate, mucous membranes moist Chest: Clear to auscultation, on room air, no adventitious breath sounds Cardiac: Regular rate and rhythm, no murmur, no JVD, normal peripheral pulses, good capillary refill Abdominal: NABS x 4 quadrants, soft, nontender to palpation, no rebound, guarding or tenderness Extremities: There is a deep deep gash through digits 1 through 3 on the left foot, minimal swelling, pulses are intact, skin is warm, not tender to touch; otherwise normal inspection, no peripheral edema or erythema, calfs nontender to palpation Psych: Normal mood and affect Neuro: AAO x 3, strength intact bilaterally and rated 5/5, no motor deficits, speech is clear, no peripheral sensory deficits Skin: no rash or erythema Principal Diagnosis 1.) Left First distal phalanx open fracture 2.) Left Extensor Hallucis Longus laceration 3.) Left Second Intermediate phalanx open fracture 4.) left Second Extensor Digitorum longus and brevis laceration 5.) Left Third toe Extensor Digitorum longus and brevis laceration 6.) Left fourth toe Extensor Digitorum longus and brevis laceration Discharge Exam GENERAL : No acute distress EYES: No icterus, gaze conjugate NOSE: No evidence of epistaxis MOUTH: No lesions or candidiasis NECK: Supple LUNGS: CTA B/L, no wheezes, rales or rhonchi HEART: Regular, rate controlled ABDOMEN: Soft, NT, ND, BS Present EXTREMITIES: No LE edema, posterior tibial pedal pulses intact and equal bilaterally NEURO: A&OX3. Good sensation and pulses and bilateral feet. Patient has good sensation to the toes of the left foot. Discharge Data Allergies Allergy/AdvReac Type Severity Reaction Status Date / Time No Known Allergies Allergy Unknown Unverified 05/09/22 17:20 Vaccinations No vaccinations this admission. However, patient does have up-to-date tetanus as listed below: 12/14/20 18:19 Rx Number [id number] Total Dose 0.5 ml Drug Class Toxoids Label Text TDAP Diphtheria/Pertussis/Tetanus Vacc 0.5 ml (1 SYRINGE) Diphtheria/Tet/Pertuss (Adult) Diphtheria/Tetanus/Pertussis 0.5 Ml Syr/Vial Consultations 05/09/22 17:16 Consult Podiatry Stat ED Decision to Admit Stat 05/09/22 23:19 Consult Podiatry Routine Procedures Performed Operation Date: 05/09/22 11:40 Actual Procedures p Incision and Drainage Debridement of Left Foot; Laceration of Non Viable Bone and Soft Tissue(Left) - ADRIANA LakhaniM, MS Ordered Studies Plain film x-ray of the left foot 3 view 05/09/2022: XR foot LT min 3V routine CLINICAL HISTORY: open fx over toes TECHNIQUE: 3 views of the left foot were obtained. Comparison: None available at the time of this dictation. FINDINGS: There is a fracture of the distal phalanx of the first digit middle phalanx of the second digit. Soft tissue lacerations are seen. Soft tissue swelling is seen. There are a few punctate radiodense foreign bodies. The joint spaces are well preserved. IMPRESSION: Fractures of the distal phalanx of the first digit and middle phalanx of the second digit. There is associated soft tissue laceration. A few punctate radiodense foci in the soft tissues may represent foreign bodies. ACT 112: Negative or not required by law. Electronically signed by: Stuart Sofia M.D. 05/09/2022 5:16 PM Diabetes Follow up Patient's most recent hemoglobin A1c was 5.5 on 11/05/2020 Patient's highest hemoglobin A1c was 5.7% on 08/02/2018 Patient should follow-up with primary care physician for diabetic work-up due to BMI of 45.6 kg/m. Will defer to outpatient for this. Hospital Course (1) Open fracture of foot: Attending: Dr. 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 He had fractures of the first second third and fourth toe on his left foot that required surgical repair. Patient underwe nt operative repair on 05/09/[address] Rocky Street from podiatry. Patient has been on ceftriaxone IV daily since his admission and will be discharged on Keflex and ciprofloxacin for an additional 7 days or until discontinued by Dr. Street. Patient does have follow-up with Dr. Street scheduled for this Thursday. He was seen by orthotics for an orthotic sandal to protect the foot. He should be nonweightbearing on the left foot until seen by Dr. Street. No fever documented. Patient denies any acute problems and states his pain is generally controlled. He was offered narcotic analgesia on discharge and declined. He was told that he could take Tylenol as needed for pain and to call primary care or Dr. Street should he need additional pain medications. (2) Fracture of toe: Traumatic fracture of the first second third and fourth toe on the left foot. Surgical repair by Dr. Street on 05/09/2022 Nonweightbearing on left foot No cultures were sent for evaluation. Empiric antibiotics with Keflex and ciprofloxacin on discharge. Patient received ceftriaxone while inpatient (3) Obstructive sleep apnea of adult: Patient advised to continue using his CPAP device Outpatient management with sleep medicine (4) Hypertension: Patient's blood pressures been controlled while in the hospital. He should continue with his usual home medications and can resume them immediately (5) Hyperglycemia: Previous hemoglobin A1c on 11/05/2020 was 5.5% Patient advised to manage sugar well to induce healing of his open wound (6) Dyslipidemia: Patient should continue with simvastatin and follow primary care (7) Vitamin D deficiency: Continue vitamin D replacement and follow with primary care (8) Morbid obesity with BMI of 45.0-49.9, adult: BMI 45 Plan Patient is doing well and has been cleared for discharge by Dr. Street Discharge patient home today We talked about needs at home and patient states that his nowoep-lo-iez is a registered nurse and has already said that she will be checking in on him Patient advised to follow strict nonweightbearing on left foot until seen by Dr. Street. Patient also advised not to go to work until cleared by Dr. Street Total Time Total Time Spent Total Time Spent (In Minutes): 45 minutes including face to face with patient, discussion by phone with Dr. Street, chart review, preparation of discharge summary and instructions. Discharge Plan Discharge Items Patient Disposition: Home - Self-Care Reason For Visit: CUT ON L FOOT, BLEEDING, WC Discharge Diagnosis: 1.) Left First distal phalanx open fracture 2.) Left Extensor Hallucis Longus laceration 3.) Left Second Intermediate phalanx open fracture 4.) left Second Extensor Digitorum longus and brevis laceration 5.) Left Third toe Extensor Digitorum longus and brevis laceration 6.) Left fourth toe Extensor Digitorum longus and brevis laceration Activity Comment: You should limit activity until seen by Dr. Street in follow up Lifting: Wait until after follow-up appointment Bathing: Keep incision dry Sexual Activity: When tolerated Exercise/Sports: Wait until after follow-up appointment Weightbearing: Left non-weightbearing Non-emergency contact: Primary Care Provider Call non-emergency contact if: you have any medication questions, your pain is not controlled, your pain is worsening, your temperature is above 101, your wound has increased redness and your wound pain has increased Follow-up/Referrals: Matt Covarrubias CRNP [Primary Care Provider] - 05/20/22 8:20 am Diet: Heart Healthy Addtl Attending Provider Instructions: You were admitted on 05/09/2022 with an open fracture of the foot after trauma. You had trauma to the first second third and fourth toe on the left foot. This was repaired by Dr. Rocky Street and you were placed in a splint with wrap. During your hospitalization, you received ceftriaxone 2 g daily as an antibiotic. Your home medications were continued. At this time, you are to keep the splint and dressing in place until your follow-up appointment with Dr. Street. There is no indication at this time for dressing changes. This may change once she see Dr. Street on Thursday. Please follow all of his instructions. Your most recent tetanus shot is as follows: 12/14/20 18:19 Rx Number [id number] Total Dose 0.5 ml Drug Class Toxoids Label Text TDAP Diphtheria/Pertussis/Tetanus Vacc 0.5 ml (1 SYRINGE) Diphtheria/Tet/Pertuss (Adult) Diphtheria/Tetanus/Pertussis 0.5 Ml Syr/Vial You are being discharged on 2 antibiotics to be taken by mouth, Cephalexin (Keflex) 500mg by mouth every 12 hours X 7 days and Cipro (Ciprofloxacin) 500 mg by mouth every 12 hours X 7 days. You should take these medications until seen by Dr. Street and then follow his instructions for length of treatment and antibiotic. You should take an over the counter probiotic (Lactobacillus acidophilus) while taking these medications. If you develop a rash or severe nausea or vomiting, please contact your primary care physician or Dr. Street for advice. You should keep your left leg dry and dressings in place until seen by Dr. Street. You should also remain nonweightbearing on that leg. If you develop fever, increased pain, drainage, or other concerns regarding your recent injury, please do not delay calling your doctor or reporting to the emergency room for evaluation. You should remain off work until cleared to go back to work by Dr. Street You should avoid all tobacco products as these can delay healing of tissue. Pending Studies at Discharge: No Stand-Alone Forms: [facility] Medications and DC Order Prescriptions: New ciprofloxacin HCl [Cipro] 500 mg tablet 500 mg PO Q12H Qty: 14 0RF Continued omeprazole 40 mg capsule,delayed release(DR/EC) 40 mg PO DAILY Qty: 90 2RF amlodipine 10 mg tablet 10 mg PO DAILY Qty: 90 2RF losartan 100 mg tablet 100 mg PO DAILY Qty: 90 1RF meloxicam 7.5 mg tablet 7.5 mg PO DAILY PRN (Reason: pain) Qty: 90 1RF simvastatin 10 mg tablet 10 mg PO QPM Qty: 90 1RF vitamin B complex Tablet 1 tab PO QAM flaxseed oil 1,000 mg capsule 1,000 mg PO BID Rx Instructions: administer with a meal ipratropium bromide 42 mcg (0.06 %) spray,non-aerosol 2 spray INTNAS QPM PRN (Reason: allergy symptoms) Qty: 15 0RF colchicine 0.6 mg tablet 0.6 mg PO BID Qty: 180 1RF trazodone 50 mg tablet 50 mg PO HS cholecalciferol (vitamin D3) [Vitamin D3] 50 mcg (2,000 unit) Tablet 4,000 unit PO QAM Discharge Orders: Discharge Order (Routine); Ordered 05/12/22 Ordered By: Sander Fink Admission Data Admit Date/Time: 05/09/22 17:38 Attending Provider: Omar Conroy Admit Provider: Alberto Tafoya Primary Care Provider: Matt Covarrubias Other Providers: Rocky Street ; Alberto Tafoya Other Interventions: Discharge Summary Assessment (RN) Last Done: 05/12/22 16:25 Supervising Physician Co-Signing Physician Notes Attending Attestation and Discharge Note - Pt seen/examined, chart reviewed, care plan d/w PA Sander Fink. I agree w/ the graff components of his discharge summary. 41yo male with CORTNEY & HTN who presented after suffering a complex injury to his left foot due to a saw accident. He had multiple fractures and injuries to multiple tendons in the left foot. He was seen by podiatry, Dr Rocky Street, who took him to the OR on 05/09/22 where he repaired multiple tendons, reduced his fractures, and performed wash- out. He will f/u with Dr Street shortly after discharge for recheck. He is being sent home on prophylactic antibiotics due to the nature of his injury (dirty saw) and the extent of injury. Pain was controlled at time of discharge. Discharge exam - gen - NAD, obese mouth - MMM heart - RRR, s1 s2, no murmur lungs - CTA b/l musculo - left leg in splint/STU wrap/etc; toes exposed, good cap refill, no bleeding or drainage from any toe Omar Conroy MD Coding Level of Care Code D/C DAY MANAGEMENT >30 MINS Diagnoses Open fracture of foot S92.909B Fracture of toe S92.919B Encounter type: initial encounter Fracture alignment: displaced Fracture type: open Laterality: unspecified laterality Toe: unspecified toe Obstructive sleep apnea of adult G47.33 Hypertension I10 Hypertension type: essential hypertension Hyperglycemia R73.9 Dyslipidemia E78.5 Vitamin D deficiency E55.9 Morbid obesity with BMI of 45.0-49.9, adult E66.01; Z68.42
== END 2022-05-12 17:39 | disposition home or self-care (01) | DRG 501 ==
LOC: ED 16:20 → OBSVTOIN 17:38 → INTOOBSV 17:38 → SUATTDRO 17:38 → 3E 17:38 → OR 18:00